=== PATIENT | female | born 1950 | race Caucasian/White ===

== ENCOUNTER 2016-07-15 11:43 | Emergency (ER) | payer OTHER ==
[2016-07-15 11:50] VITALS: TEMP 97.7
[2016-07-15] MEDS ORDERED: PROMETHAZINE HCL 25 MG/ML INJ IVP ONE (12:33)
[2016-07-15 12:37] LABS: % IMMATURE GRANULYOCYTES 0.3 % (0.0-1.1); ABSOLUTE IMMATURE GRANULOCYTES 0.03 10^3/uL (0.00-0.10); ADD DIFF? NO; ADD MORPH? NO; ADD SCAN? NO; ATYPICAL LYMPHOCYTE FLAG 0 (0-99); FRAGMENT RBC FLAG 0 (0-99); HEMATOCRIT 44.9 % (38.0-47.0); HEMOGLOBIN 16.7 g/dL (12.6-16.3); LEFT SHIFT FLG 0 (0-99); LIPEMIA HEMOLYSIS FLAG 90 (0-99); MEAN CELL HEMOGLOBIN 32.8 pg (27.9-34.1); MEAN CELL HEMOGLOBIN CONCENTR. 37.2 g/dL (32.4-36.7); MEAN CELL VOLUME 88.2 fL (81.5-99.8); MEAN PLATELET VOLUME 9.6 fL (8.7-11.7); PLATELET CLUMPS FLAG 10 (0-99); PLATELET COUNT 184 10^3/uL (150-400); RED BLOOD CELL COUNT 5.09 10^6/uL (4.18-5.33); RED CELL DISTRIBUTION WIDTH 12.9 % (11.5-15.2)
[2016-07-15 13:17] LABS: ALANINE AMINOTRANSFERASE 48 IU/L (9-52); ALBUMIN 4.7 g/dL (3.5-5.0); ALKALINE PHOSPHATASE 92 IU/L (38-126); ANION GAP 17 mEq/L (8-16); ASPARTATE AMINOTRANSFERASE 45 IU/L (14-46); BILIRUBIN,TOTAL 1.5 mg/dL (0.1-1.4); BILIRUBIN-CONJUGATED 0.6 mg/dL (0.0-0.5); BILIRUBIN-UNCONJUGATED 0.9 mg/dL (0.0-1.1); CALCIUM 9.4 mg/dL (8.5-10.4); CARBON DIOXIDE 18 mEq/l (22-31); CHLORIDE 104 mEq/L (97-110); CREATININE 0.4 mg/dL (0.6-1.0); GLOMERULAR FILTRATION RATE > 60; GLUCOSE 140 mg/dL (70-100); POTASSIUM 3.5 mEq/L (3.5-5.2); SODIUM 139 mEq/L (134-144); TOTAL PROTEIN 8.1 g/dL (6.3-8.2)
[2016-07-15] MEDS ORDERED: LORazepam 2 MG/ML INJ IVP ONE (13:29)
[2016-07-15] MEDS ORDERED: LORazepam 2 MG/ML INJ ONE (13:30)
--- NOTE | 2016-07-15 13:33 | EDPHY ---
H & P Stated Complaint: n/v Time Seen by Provider: 07/15/16 12:12 HPI/ROS: CHIEF COMPLAINT: nausea and vomiting HISTORY OF PRESENT ILLNESS: 66-year-old female presents emergency department complaining of nausea and vomiting that started yesterday morning. Patient reports the night before she had for alcoholic beverages which is more than she usually drinks, she woke up in the morning feeling hung over with mild nausea that progressed several hours later to vomiting. Patient denies abdominal pain. Patient states she has been unable to keep any food or fluids down since this time. Patient denies bright red blood in vomit, she denies diarrhea, no black tarry stools. She does report seeing brown streaks in her vomit but states she drink root beer trying to make herself feel better. Patient reports she smokes marijuana daily, 3-4 hits every night to sleep for the past year and half. Patient denies chest pain, shortness of breath, lightheadedness or dizziness. Patient has a history alcoholism, GI bleed, esophageal varices. Patient states she stopped drinking in 2010 and started drinking again 2 years ago though reports she only drinks about once a week in usually only 1 or 2 drinks. Her daughter is at bedside confirming this. REVIEW OF SYSTEMS: A comprehensive 10 point review of systems is otherwise negative aside from elements mentioned in the history of present illness. Source: Patient, Family Exam Limitations: No limitations - Personal History Current Tetanus/Diphtheria Vaccine: Yes - Medical/Surgical History Hx Asthma: No Hx Chronic Respiratory Disease: No Hx Diabetes: No Hx Cardiac Disease: No Hx Renal Disease: No Hx Cirrhosis: Yes Hx Alcoholism: Yes Hx HIV/AIDS: No Hx Splenectomy or Spleen Trauma: No Other PMH: Alcoholism, liver disease, anemia, gi bleed, esophageal varacies, falls related to alcohol, hip fracture, paracentesis procedure, osteoporosis - Social History Smoking Status: Never smoked Constitutional: Initial Vital Signs Temperature (C) 36.5 C 07/15/16 11:47 Heart Rate 117 H 07/15/16 11:47 Respiratory Rate 22 H 07/15/16 11:47 Blood Pressure 174/99 H 07/15/16 11:47 O2 Sat (%) 98 07/15/16 11:47 O2 Delivery Mode Room Air Allergies/Adverse Reactions: No Known Allergies Allergy (Verified 07/15/16 11:44) Home Medications: Medication Instructions Recorded Ondansetron Odt [Zofran Odt] 4 mg PO Q4PRN PRN #20 tab 09/11/14 LORazepam [Ativan (*)] 1 mg PO Q8HRS PRN #4 tab 07/15/16 Ondansetron Odt [Zofran Odt] 4 mg PO Q6-8PRN PRN #8 tab 07/15/16 Medical Decision Making ED Course/Re-evaluation: Patient is sent over from [facility] with an IV in place. She was given 2 L of normal saline and 8 mg of Zofran and continued to vomit. On arrival to the emergency department bloods were drawn and sent to the lab including a CBC, chemistry panel, LFTs and lipase. Patient is given 12.5 mg of Phenergan on arrival for continued nausea. Emesis seen in emesis basin, no coffee-ground emesis, no bright red blood. 1pm-CBC shows a normal white blood cell count, hemoglobin and hematocrit 16.7 and 44.9 and this was after 2 L of normal saline. LFTs are normal, kidney function is normal, bicarb is 18. 130pm-patient continues with nausea, emesis is basin. No coffee ground or bright red blood in emesis. She is given 1 mg lorazepam IV. 3pm- Pt reports feeling much better. She is aware we need a urine sample. She is ambulatory to the bathroom to provide this without difficulty. 330pm-urinalysis shows 5-10 RBCs, otherwise unremarkable. Patient was given a popsicle and kept this down without vomiting, she denies nausea. Patient will be discharged with a prescription for Zofran and a prescription for 4 lorazepam. She is given strict return precautions for hematemesis, coffee- ground emesis, hematochezia, abdominal pain, any new symptoms or concerns. Differential Diagnosis: Diagnosis considered but not limited to gastroenteritis, GI bleed, small-bowel obstruction, hyperemesis cannabinoid syndrome, hung over from alcohol. - Data Points Laboratory Results: Laboratory Results 07/15/16 12:30 07/15/16 12:30 07/15/16 07/15/16 14:55 12:30 WBC 9.79 H 10^3/uL (3.80-9.50) RBC 5.09 10^6/uL (4.18-5.33) Hgb 16.7 H g/dL (12.6-16.3) Hct 44.9 % (38.0-47.0) MCV 88.2 fL (81.5-99.8) MCH 32.8 pg (27.9-34.1) MCHC 37.2 H g/dL (32.4-36.7) RDW 12.9 % (11.5-15.2) Plt Count 184 10^3/uL (150-400) MPV 9.6 fL (8.7-11.7) Neut % (Auto) 79.8 H % (39.3-74.2) Lymph % (Auto) 11.0 L % (15.0-45.0) [place] % (Auto) 8.8 % (4.5-13.0) Eos % (Auto) 0.0 L % (0.6-7.6) Baso % (Auto) 0.1 L % (0.3-1.7) Nucleat RBC Rel Count 0.0 % (0.0-0.2) Absolute Neuts (auto) 7.81 H 10^3/uL (1.70-6.50) Absolute Lymphs (auto) 1.08 10^3/uL (1.00-3.00) Absolute Monos (auto) 0.86 H 10^3/uL (0.30-0.80) Absolute Eos (auto) 0.00 L 10^3/uL (0.03-0.40) Absolute Basos (auto) 0.01 L 10^3/uL (0.02-0.10) Absolute Nucleated RBC 0.00 10^3/uL (0-0.01) Immature Gran % 0.3 % (0.0-1.1) Immature Gran # 0.03 10^3/uL (0.00-0.10) Sodium 139 mEq/L (134-144) Potassium 3.5 mEq/L (3.5-5.2) Chloride 104 mEq/L (97-110) Carbon Dioxide 18 L mEq/l (22-31) Anion Gap 17 mEq/L (8-16) BUN 8 mg/dL (7-23) Creatinine 0.4 L mg/dL (0.6-1.0) Estimated GFR > 60 Glucose 140 H mg/dL (70-100) Calcium 9.4 mg/dL (8.5-10.4) Total Bilirubin 1.5 H mg/dL (0.1-1.4) Conjugated Bilirubin 0.6 H mg/dL (0.0-0.5) Unconjugated Bilirubin 0.9 mg/dL (0.0-1.1) AST 45 IU/L (14-46) ALT 48 IU/L (9-52) Alkaline Phosphatase 92 IU/L (38-126) Total Protein 8.1 g/dL (6.3-8.2) Albumin 4.7 g/dL (3.5-5.0) Lipase 43.0 IU/L (23-300) Urine Color YELLOW Urine Appearance CLEAR Urine pH 6.0 (5.0-7.5) Ur Specific [place] 1.011 (1.002-1.030) Urine Protein NEGATIVE (NEGATIVE) Urine Ketones 1+ H (NEGATIVE) Urine Blood 2+ H (NEGATIVE) Urine Nitrate NEGATIVE (NEGATIVE) Urine Bilirubin NEGATIVE (NEGATIVE) Urine Urobilinogen NEGATIVE EU (0.2-1.0) Ur Leukocyte Esterase NEGATIVE (NEGATIVE) Urine RBC 5-10 H /hpf (0-3) Urine WBC 1-3 /hpf (0-3) Ur Epithelial Cells TRACE /lpf (NONE-1+) Urine Mucus TRACE /lpf (NONE-1+) Ur Culture Indicated? NOT INDICATED (NI) Urine Glucose NEGATIVE (NEGATIVE) Medications Given: Discontinued Medications Lorazepam (Ativan Injection) 1 mg IVP EDNOW ONE Stop: 07/15/16 13:30 Last Admin: 07/15/16 13:36 Dose: 1 mg Promethazine HCl (Phenergan Injection) 12.5 mg IVP ONCE ONE Stop: 07/15/16 12:34 Last Admin: 07/15/16 12:50 Dose: 12.5 mg Departure - Departure Disposition: Home, Routine, Self-Care Clinical Impression: Nausea & vomiting Qualifiers: Vomiting type: unspecified Vomiting Intractability: non-intractable Qualifier Code: (R11.2) Nausea with vomiting, unspecified Condition: Good Instructions: Acute Nausea and Vomiting (ED) Additional Instructions: Take Zofran as needed for nausea, if this does not work take 1 mg of lorazepam every 8 hours as needed. Clear liquids only for the next 24 hours, start with small sips then advance her diet as tolerated. Return to the emergency department for worsening symptoms, blood in your vomit or stool, chest pain, shortness of breath, any other questions or concerns. Follow-up with your primary care doctor on Sunday for re-evaluation. Do not drink alcohol. Referrals: Isa Díaz MD [Primary Care Provider] - As per Instructions Prescriptions: LORazepam [Ativan (*)] 1 mg PO Q8HRS PRN #4 tab PRN Reason: Nausea/Vomiting, Can'T Take Po Ondansetron Odt [Zofran Odt] 4 mg PO Q6-8PRN PRN #8 tab PRN Reason: Nausea/Vomiting, Can'T Take Po
[2016-07-15 15:10] LABS: COLOR YELLOW; LEUKOCYTE ESTERASE,URINE NEGATIVE (NEGATIVE); NITRITE,URINE NEGATIVE (NEGATIVE)
[2016-07-15 15:15] LABS: MUCUS TRACE /lpf (NONE-1+)
[2016-07-15 15:58] VITALS: BP 165/89; PULSE 101; RESP 16; O2SAT 95
== END 2016-07-15 15:58 | disposition home or self-care (01) ==
DX: R11.2 Nausea with vomiting, unspecified (principal)
CPT/HCPCS: 96374; 96375; 99284; J2550

== ENCOUNTER 2016-07-16 14:01 | Emergency (ER) | payer OTHER ==
[2016-07-16 14:29] VITALS: TEMP 98.4
[2016-07-16] MEDS ORDERED: NS 1,000 ML IV ONE (14:49)
[2016-07-16 14:57] LABS: % IMMATURE GRANULYOCYTES 0.3 % (0.0-1.1); ABSOLUTE IMMATURE GRANULOCYTES 0.03 10^3/uL (0.00-0.10); ADD DIFF? NO; ADD MORPH? NO; ADD SCAN? NO; ATYPICAL LYMPHOCYTE FLAG 0 (0-99); FRAGMENT RBC FLAG 0 (0-99); HEMATOCRIT 47.2 % (38.0-47.0); HEMOGLOBIN 17.4 g/dL (12.6-16.3); LEFT SHIFT FLG 0 (0-99); LIPEMIA HEMOLYSIS FLAG 90 (0-99); MEAN CELL HEMOGLOBIN 32.2 pg (27.9-34.1); MEAN CELL HEMOGLOBIN CONCENTR. 36.9 g/dL (32.4-36.7); MEAN CELL VOLUME 87.2 fL (81.5-99.8); MEAN PLATELET VOLUME 9.6 fL (8.7-11.7); PLATELET CLUMPS FLAG 0 (0-99); PLATELET COUNT 166 10^3/uL (150-400); RED BLOOD CELL COUNT 5.41 10^6/uL (4.18-5.33); RED CELL DISTRIBUTION WIDTH 12.8 % (11.5-15.2)
[2016-07-16 15:14] LABS: ANION GAP 16 mEq/L (8-16); CALCIUM 9.5 mg/dL (8.5-10.4); CARBON DIOXIDE 20 mEq/l (22-31); CHLORIDE 99 mEq/L (97-110); CREATININE 0.5 mg/dL (0.6-1.0); GLOMERULAR FILTRATION RATE > 60; GLUCOSE 115 mg/dL (70-100); POTASSIUM 3.1 mEq/L (3.5-5.2); SODIUM 135 mEq/L (134-144)
[2016-07-16] MEDS ORDERED: ONDANSETRON 4 MG/2 ML VIAL IVP ONE (15:19)
--- NOTE | 2016-07-16 15:21 | EDPHY ---
H & P Stated Complaint: n/v seen yesterday for same Time Seen by Provider: 07/16/16 14:45 HPI/ROS: CHIEF COMPLAINT: Intractable nausea and vomiting HISTORY OF PRESENT ILLNESS: The patient presents to the emergency department with complaints of ongoing intractable nausea and vomiting. The patient was seen in the emergency department yesterday for similar symptoms. The patient reports she has had symptoms of nausea and vomiting for the past 4 days. They initially began after using alcohol. The patient does have a history of alcoholic hepatitis. The patient denies any melena. She currently denies any acute abdominal pain. She vomited approximately 5-10 times throughout the evening. There was no hematemesis or melena. REVIEW OF SYSTEMS: A comprehensive 10 point review of systems is otherwise negative aside from elements mentioned in the history of present illness. Source: Patient Exam Limitations: No limitations - Personal History Current Tetanus/Diphtheria Vaccine: Yes - Medical/Surgical History Hx Asthma: No Hx Chronic Respiratory Disease: No Hx Diabetes: No Hx Cardiac Disease: No Hx Renal Disease: No Hx Cirrhosis: Yes Hx Alcoholism: Yes Hx HIV/AIDS: No Hx Splenectomy or Spleen Trauma: No Other PMH: Alcoholism, liver disease, anemia, gi bleed, esophageal varacies, falls related to alcohol, hip fracture, paracentesis procedure, osteoporosis - Social History Smoking Status: Never smoked - Physical Exam Exam: General Appearance: Alert, no distress Eyes: Pupils equal and round no pallor or injection ENT, Mouth: Mucous membranes moist Respiratory: There are no retractions, lungs are clear to auscultation Cardiovascular: Regular rate and rhythm Gastrointestinal: Abdomen is soft and nontender, no masses, bowel sounds normal Neurological: A&O, normal motor function, normal sensory exam, normal cranial nerves Skin: Warm and dry, no rashes Musculoskeletal: Neck is supple nontender Extremities: symmetrical, full range of motion Constitutional: Initial Vital Signs Temperature (C) 36.9 C 07/16/16 14:27 Heart Rate 108 H 07/16/16 14:27 Respiratory Rate 23 H 07/16/16 14:27 Blood Pressure 165/123 H 07/16/16 14:27 O2 Sat (%) 97 07/16/16 14:27 O2 Delivery Mode Room Air Allergies/Adverse Reactions: No Known Allergies Allergy (Verified 07/16/16 14:26) Home Medications: Medication Instructions Recorded Ativan 07/16/16 Ondansetron Odt [Zofran Odt] 4 mg PO Q4PRN PRN #20 tab 07/16/16 Zofran 07/16/16 Medical Decision Making ED Course/Re-evaluation: The patient presents to the ED with recurrent vomiting. I find her abdominal examination to be benign. She had an IV established. She received 2 L of normal saline. I reviewed her ED visit from yesterday including her laboratory studies. Laboratory studies are repeated today and found to be unremarkable. The patient did receive IV Zofran. She was re-examined by myself 3 times over a 3 hour period. At this point time she has no evidence of cholecystitis, appendicitis, pancreatitis or peritonitis. Patient was evaluated at 5:45 p.m. and is feeling much better. She would like to be discharged home. She is given a another prescription for Zofran. The patient will be discharged home with customary return precautions. Differential Diagnosis: Differential diagnosis considered includes cholecystitis, pancreatitis, gastroenteritis, metabolic abnormality, dehydration - Data Points Laboratory Results: Laboratory Results 07/16/16 14:50 07/16/16 14:50 07/16/16 14:50 WBC 10.01 H 10^3/uL (3.80-9.50) RBC 5.41 H 10^6/uL (4.18-5.33) Hgb 17.4 H g/dL (12.6-16.3) Hct 47.2 H % (38.0-47.0) MCV 87.2 fL (81.5-99.8) MCH 32.2 pg (27.9-34.1) MCHC 36.9 H g/dL (32.4-36.7) RDW 12.8 % (11.5-15.2) Plt Count 166 10^3/uL (150-400) MPV 9.6 fL (8.7-11.7) Neut % (Auto) 72.5 % (39.3-74.2) Lymph % (Auto) 19.0 % (15.0-45.0) [place] % (Auto) 7.8 % (4.5-13.0) Eos % (Auto) 0.0 L % (0.6-7.6) Baso % (Auto) 0.4 % (0.3-1.7) Nucleat RBC Rel Count 0.0 % (0.0-0.2) Absolute Neuts (auto) 7.26 H 10^3/uL (1.70-6.50) Absolute Lymphs (auto) 1.90 10^3/uL (1.00-3.00) Absolute Monos (auto) 0.78 10^3/uL (0.30-0.80) Absolute Eos (auto) 0.00 L 10^3/uL (0.03-0.40) Absolute Basos (auto) 0.04 10^3/uL (0.02-0.10) Absolute Nucleated RBC 0.00 10^3/uL (0-0.01) Immature Gran % 0.3 % (0.0-1.1) Immature Gran # 0.03 10^3/uL (0.00-0.10) Sodium 135 mEq/L (134-144) Potassium 3.1 L mEq/L (3.5-5.2) Chloride 99 mEq/L (97-110) Carbon Dioxide 20 L mEq/l (22-31) Anion Gap 16 mEq/L (8-16) BUN 9 mg/dL (7-23) Creatinine 0.5 L mg/dL (0.6-1.0) Estimated GFR > 60 Glucose 115 H mg/dL (70-100) Calcium 9.5 mg/dL (8.5-10.4) Total Bilirubin 1.7 H mg/dL (0.1-1.4) Conjugated Bilirubin 0.7 H mg/dL (0.0-0.5) Unconjugated Bilirubin 1.0 mg/dL (0.0-1.1) AST 46 IU/L (14-46) ALT 46 IU/L (9-52) Alkaline Phosphatase 92 IU/L (38-126) Total Protein 8.5 H g/dL (6.3-8.2) Albumin 4.7 g/dL (3.5-5.0) Lipase 93.0 IU/L (23-300) Medications Given: Discontinued Medications Sodium Chloride (Ns) 1,000 mls @ 0 mls/hr IV ONCE ONE PRN Reason: Wide Open Stop: 07/16/16 14:50 Last Admin: 07/16/16 15:02 Dose: 1,000 mls Ondansetron HCl (Zofran) 4 mg IVP EDNOW ONE Stop: 07/16/16 15:20 Last Admin: 07/16/16 15:35 Dose: 4 mg Departure - Departure Disposition: Home, Routine, Self-Care Clinical Impression: Gastroenteritis Condition: Good Instructions: Acute Nausea and Vomiting (ED) Additional Instructions: 1. Return to the ED for any severe abdominal pain, intractable vomiting, fever or other concerns. 2. Continue Zofran as needed for nausea. 3. Please follow-up with your primary care provider as needed Prescriptions: Ondansetron Odt [Zofran Odt] 4 mg PO Q4PRN PRN #20 tab PRN Reason: For Nausea
[2016-07-16 15:35] LABS: ALBUMIN 4.7 g/dL (3.5-5.0); BILIRUBIN,TOTAL 1.7 mg/dL (0.1-1.4); BILIRUBIN-CONJUGATED 0.7 mg/dL (0.0-0.5); TOTAL PROTEIN 8.5 g/dL (6.3-8.2)
[2016-07-16 18:00] VITALS: RESP 18
[2016-07-16 18:01] VITALS: BP 158/93; PULSE 91; O2SAT 97
== END 2016-07-16 18:00 | disposition home or self-care (01) ==
DX: K52.9 Noninfective gastroenteritis and colitis, unspecified (principal)
CPT/HCPCS: 96361; 96374; 99284; J2405

== ENCOUNTER 2016-08-10 04:55 | Observation (INO) | payer OTHER ==
[2016-08-10] MEDS ORDERED: ONDANSETRON 4 MG/2 ML VIAL ONE (05:08)
[2016-08-10] MEDS ORDERED: ONDANSETRON 4 MG/2 ML VIAL IVP ONE (05:09)
[2016-08-10] MEDS ORDERED: NS 1,000 ML IV ONE ×2 (05:09→06:31)
[2016-08-10 05:31] LABS: % IMMATURE GRANULYOCYTES 0.3 % (0.0-1.1); ABSOLUTE IMMATURE GRANULOCYTES 0.03 10^3/uL (0.00-0.10); ADD DIFF? NO; ADD MORPH? NO; ADD SCAN? NO; ATYPICAL LYMPHOCYTE FLAG 10 (0-99); FRAGMENT RBC FLAG 0 (0-99); HEMATOCRIT 47.7 % (38.0-47.0); HEMOGLOBIN 17.2 g/dL (12.6-16.3); LEFT SHIFT FLG 0 (0-99); LIPEMIA HEMOLYSIS FLAG 90 (0-99); MEAN CELL HEMOGLOBIN 32.1 pg (27.9-34.1); MEAN CELL HEMOGLOBIN CONCENTR. 36.1 g/dL (32.4-36.7); MEAN CELL VOLUME 89.2 fL (81.5-99.8); MEAN PLATELET VOLUME 10.8 fL (8.7-11.7); PLATELET CLUMPS FLAG 10 (0-99); PLATELET COUNT 157 10^3/uL (150-400); RED BLOOD CELL COUNT 5.35 10^6/uL (4.18-5.33)
[2016-08-10] MEDS ORDERED: PROMETHAZINE HCL 25 MG/ML INJ IVP ONE (05:35)
--- NOTE | 2016-08-10 05:40 | EDPHY ---
H & P Stated Complaint: N and V and D severe since 0030; brown watery stool per pt Source: Patient Exam Limitations: No limitations - Personal History Current Tetanus/Diphtheria Vaccine: Yes Current Tetanus Diphtheria and Acellular Pertussis (TDAP): Yes - Medical/Surgical History Hx Asthma: No Hx Chronic Respiratory Disease: No Hx Diabetes: No Hx Cardiac Disease: No Hx Renal Disease: No Hx Cirrhosis: Yes Hx Alcoholism: Yes Hx HIV/AIDS: No Hx Splenectomy or Spleen Trauma: No Other PMH: Alcoholism, liver disease, anemia, gi bleed, esophageal varacies, falls related to alcohol, hip fracture, paracentesis procedure, osteoporosis - Social History Smoking Status: Never smoked Time Seen by Provider: 08/10/16 05:07 HPI/ROS: HPI The patient presents with nausea, vomiting, diarrhea which began suddenly at approximately 12:30 a.m. this morning. She has had multiple episodes of loose watery stool without any blood. The vomiting began shortly thereafter and she has nonbloody nonbilious emesis. She denies any abdominal pain. This feels similar to about 1 month ago when she came into the emergency room with nausea, vomiting, diarrhea. She was sick for about 3 days then and made a full recovery. She denies any sick contacts currently. She had 1 beer yesterday, however otherwise has not been drinking alcohol.. REVIEW OF SYSTEMS Constitutional: No fever, no chills. Eyes: No discharge. ENT: No sore throat. Cardiovascular: No chest pain, no palpitations. Respiratory: No cough, no shortness of breath. Gastrointestinal: See HPI Genitourinary: No hematuria. Musculoskeletal: No back pain. Skin: No rashes. Neurological: No headache. PMHx: Alcoholic hepatitis Soc Hx: Lives at home PHYSICAL General Appearance: Alert, hyperventilating and uncomfortable appearing Eyes: Pupils equal and round no pallor or injection ENT, Mouth: Mucous membranes dry Respiratory: There are no retractions, lungs are clear to auscultation Cardiovascular: Regular rate and rhythm Gastrointestinal: Abdomen is soft and non-tender, no masses, bowel sounds normal Neurological: A&O, moves all extremities Skin: Warm and dry, no rashes Musculoskeletal: Neck is supple non tender Extremities: symmetrical, full range of motion Psychiatric: Patient is oriented X 3, there is no agitation (Riguzzi,Rita) Constitutional: Initial Vital Signs Temperature (C) 36.0 C 08/10/16 05:08 Heart Rate 106 H 08/10/16 05:08 Respiratory Rate 24 H 08/10/16 05:08 Blood Pressure 192/98 H 08/10/16 05:08 O2 Sat (%) 100 08/10/16 05:08 O2 Delivery Mode Room Air O2 (L/minute) 2 Allergies/Adverse Reactions: No Known Allergies Allergy (Verified 07/16/16 14:26) Home Medications: Medication Instructions Recorded Promethazine HCl [Phenergan 25mg 25 mg PO Q6H PRN #20 tab 08/10/16 (*)] Medical Decision Making ED Course/Re-evaluation: 6:30 a.m.- Patient has had no vomiting here but continues to feel nauseated after receiving fluids, Zofran and Phenergan. She is still hyperventilating and appears quite anxious. Her labs are unremarkable except for slight elevation in her AST which is likely related to alcohol use. I plan for additional L of fluid and a dose of Ativan for nausea. 7:00 a.m.- The patient is feeling much better after receiving Ativan. Her nausea has improved. She will receive a 2nd L of fluid. I anticipate she will be discharged. I feel she likely has a viral gastroenteritis. (Rita Cox) 900: I rechecked the patient. She was still feeling nauseated. She felt too ill for discharge home. She will be admitted to the [facility] for further observation and evaluation. I discussed the case with the hospitalist service who accepted patient. (Cara Goldstein) Differential Diagnosis: This is a 66-year-old female with history of alcoholic hepatitis, recent ER visit for nausea, vomiting diarrhea, now here with similar symptoms. On exam, she is slightly tachycardic and hypertensive. She is hyperventilating and appears uncomfortable, however her abdominal exam is benign. Differential diagnosis includes viral gastroenteritis, toxin mediated enterocolitis, alcoholic gastritis, pancreatitis. (Rita Cox) - Data Points Laboratory Results: Laboratory Results 08/10/16 05:15 08/10/16 05:15 08/10/16 08/10/16 08/10/16 06:35 05:15 05:15 WBC 8.92 10^3/uL 10^3/uL (3.80-9.50) RBC 5.35 10^6/uL H 10^6/uL (4.18-5.33) Hgb 17.2 g/dL H g/dL (12.6-16.3) Hct 47.7 % H % (38.0-47.0) MCV 89.2 fL fL (81.5-99.8) MCH 32.1 pg pg (27.9-34.1) MCHC 36.1 g/dL g/dL (32.4-36.7) RDW 13.0 % % (11.5-15.2) Plt Count 157 10^3/uL 10^3/uL (150-400) MPV 10.8 fL fL (8.7-11.7) Neut % (Auto) 88.5 % H % (39.3-74.2) Lymph % (Auto) 6.6 % L % (15.0-45.0) [place] % (Auto) 4.0 % L % (4.5-13.0) Eos % (Auto) 0.2 % L % (0.6-7.6) Baso % (Auto) 0.4 % % (0.3-1.7) Nucleat RBC Rel Count 0.0 % % (0.0-0.2) Absolute Neuts (auto) 7.88 10^3/uL H 10^3/uL (1.70-6.50) Absolute Lymphs (auto) 0.59 10^3/uL L 10^3/uL (1.00-3.00) Absolute Monos (auto) 0.36 10^3/uL 10^3/uL (0.30-0.80) Absolute Eos (auto) 0.02 10^3/uL L 10^3/uL (0.03-0.40) Absolute Basos (auto) 0.04 10^3/uL 10^3/uL (0.02-0.10) Absolute Nucleated RBC 0.00 10^3/uL 10^3/uL (0-0.01) Immature Gran % 0.3 % % (0.0-1.1) Immature Gran # 0.03 10^3/uL 10^3/uL (0.00-0.10) Sodium 143 mEq/L mEq/L (134-144) Potassium 3.2 mEq/L L mEq/L (3.5-5.2) Chloride 107 mEq/L mEq/L (97-110) Carbon Dioxide 18 mEq/l L mEq/l (22-31) Anion Gap 18 mEq/L H mEq/L (8-16) BUN 10 mg/dL mg/dL (7-23) Creatinine 0.5 mg/dL L mg/dL (0.6-1.0) Estimated GFR > 60 Glucose 175 mg/dL H mg/dL (70-100) Calcium 10.1 mg/dL mg/dL (8.5-10.4) Total Bilirubin 1.5 mg/dL H mg/dL (0.1-1.4) Conjugated Bilirubin 0.5 mg/dL mg/dL (0.0-0.5) Unconjugated Bilirubin 1.0 mg/dL mg/dL (0.0-1.1) AST 57 IU/L H IU/L (14-46) ALT 49 IU/L IU/L (9-52) Alkaline Phosphatase 94 IU/L IU/L (38-126) Total Protein 8.6 g/dL H g/dL (6.3-8.2) Albumin 5.0 g/dL g/dL (3.5-5.0) Lipase 73.0 IU/L IU/L (23-300) Urine Color PALE YELLOW Urine Appearance CLEAR Urine pH 7.0 (5.0-7.5) Ur Specific [place] 1.006 (1.002-1.030) Urine Protein NEGATIVE (NEGATIVE) Urine Ketones 1+ H (NEGATIVE) Urine Blood 1+ H (NEGATIVE) Urine Nitrate NEGATIVE (NEGATIVE) Urine Bilirubin NEGATIVE (NEGATIVE) Urine Urobilinogen NEGATIVE EU EU (0.2-1.0) Ur Leukocyte Esterase NEGATIVE (NEGATIVE) Urine RBC 1-3 /hpf /hpf (0-3) Urine WBC 1-3 /hpf /hpf (0-3) Ur Epithelial Cells TRACE /lpf /lpf (NONE-1+) Urine Mucus TRACE /lpf /lpf (NONE-1+) Ur Culture Indicated? NOT INDICATED (NI) Urine Glucose 1+ H (NEGATIVE) Medications Given: Discontinued Medications Sodium Chloride (Ns) 1,000 mls @ 0 mls/hr IV ONCE ONE PRN Reason: Wide Open Stop: 08/10/16 05:10 Last Admin: 08/10/16 05:15 Dose: 1,000 mls Sodium Chloride (Ns) 1,000 mls @ 0 mls/hr IV ONCE ONE PRN Reason: Wide Open Stop: 08/10/16 06:32 Last Admin: 08/10/16 06:40 Dose: 1,000 mls Lorazepam (Ativan Injection) 1 mg IVP EDNOW ONE Stop: 08/10/16 06:32 Last Admin: 08/10/16 06:40 Dose: 1 mg Ondansetron HCl (Zofran) 4 mg IVP EDNOW ONE Stop: 08/10/16 05:10 Last Admin: 08/10/16 05:15 Dose: 4 mg Promethazine HCl (Phenergan) 12.5 mg IVP ONCE ONE Stop: 08/10/16 05:36 Last Admin: 08/10/16 05:43 Dose: 6.25 mg Departure - Departure Disposition: [facility] Acute Clinical Impression: Nausea vomiting and diarrhea Condition: Good Instructions: Acute Nausea and Vomiting (ED) Additional Instructions: Please follow-up with your doctor tomorrow unless your better. Referrals: VERONICA CERDA [Other] - As per Instructions Prescriptions: Promethazine HCl [Phenergan 25mg (*)] 25 mg PO Q6H PRN #20 tab PRN Reason: Nausea/Vomiting, Can'T Take Po
[2016-08-10 05:44] LABS: ALANINE AMINOTRANSFERASE 49 IU/L (9-52); ALKALINE PHOSPHATASE 94 IU/L (38-126); ANION GAP 18 mEq/L (8-16); ASPARTATE AMINOTRANSFERASE 57 IU/L (14-46); BILIRUBIN,TOTAL 1.5 mg/dL (0.1-1.4); BILIRUBIN-CONJUGATED 0.5 mg/dL (0.0-0.5); CALCIUM 10.1 mg/dL (8.5-10.4); CARBON DIOXIDE 18 mEq/l (22-31); CHLORIDE 107 mEq/L (97-110); CREATININE 0.5 mg/dL (0.6-1.0); GLOMERULAR FILTRATION RATE > 60; GLUCOSE 175 mg/dL (70-100); POTASSIUM 3.2 mEq/L (3.5-5.2); SODIUM 143 mEq/L (134-144); TOTAL PROTEIN 8.6 g/dL (6.3-8.2)
[2016-08-10] MEDS ORDERED: LORazepam 2 MG/ML INJ IVP ONE (06:31)
[2016-08-10 07:05] LABS: COLOR PALE YELLOW; LEUKOCYTE ESTERASE,URINE NEGATIVE (NEGATIVE); NITRITE,URINE NEGATIVE (NEGATIVE)
[2016-08-10 07:15] LABS: MUCUS TRACE /lpf (NONE-1+)
[2016-08-10] MEDS ORDERED: ACETAMINOPHEN 325 MG TAB PO PRN (10:33)
--- NOTE | 2016-08-10 11:00 | GHP ---
DATE OF ADMISSION: 08/10/2016 CHIEF COMPLAINT: Nausea, vomiting and diarrhea. HISTORY OF PRESENT ILLNESS: This is a 66-year-old female with a former history of alcohol abuse, li last disease, varices who presented to the emergency department today after she began having nausea, vomiting and diarrhea that started at 12:30 this morning. She denies any bloody emesis. She has be en intolerant of p.o. fluids or solids. In the emergency department they have given her Zofran, Phe nergan, and Ativan and she continues to vomit. The patient had a similar bout of nausea and vomiting at the beginning of July, which at that ti me she attributed to alcohol use. She tells me that she only had 1 beer yesterday. She currently d enies any abdominal pain. Her diarrhea started yesterday and it is described as nonbloody. PAST MEDICAL HISTORY: 1. Alcoholism which she says now she drinks only occasionally. 2. Liver disease. 3. GI bleed. 4. Esophageal varices. 5. Falls with hip fracture. 6. Osteoporosis. PAST SURGICAL HISTORY: Hip replacement. HOME MEDICATIONS: Were reviewed. Refer to [facility] [employer] for details. ALLERGIES: No known drug allergies. SOCIAL HISTORY: The patient lives in [place]. She drinks alcohol occasionally. She denies any tob acco use or illicit drug use. She is a former smoker. REVIEW OF SYSTEMS: Comprehensive 10-point review of systems was done and was negative except for as mentioned in the HPI. PHYSICAL EXAM: VITAL SIGNS: Blood pressure 179/66, pulse of 110, respiratory rate 14, O2 saturatio n 98% on room air, temperature afebrile. GENERAL: No acute distress. HEAD: Normocephalic, atraum atic. EYES: PERRLA. Sclerae anicteric. MOUTH: Moist mucous membranes. NECK: Supple. No lymph adenopathy. CARDIOVASCULAR: Tachycardic. S1, S2. No JVD. No lower extremity edema. PULMONARY: Lungs are clear. No wheezes, rales, or rhonchi. ABDOMEN: Soft, nontender, nondistended. No guar ding or rebound tenderness. Normoactive bowel sounds, nondistended. There is negative M[place]y sign. EXTREMITIES: No clubbing or cyanosis. NEURO: Cranial nerves 2-12 grossly intact. No focal isamar r or sensory deficits. SKIN: Clear, no rashes. DIAGNOSTIC STUDIES: WBC 8.9, hemoglobin 17.2, hematocrit 47.7, platelets 157. Sodium 143, potassiu m 3.2, chloride 107, CO2 18, BUN 10, creatinine 0.5, glucose 175. AST mildly elevated at 57. Urina lysis: 1+ ketones, 1+ blood. ASSESSMENT AND PLAN: This is a 66-year-old female presenting with nausea, vomiting and diarrhea. 1. Nausea vomiting, diarrhea. Differential diagnosis includes acute viral illness/gastroenteritis versus food-borne illness versus less likely dyspepsia/alcoholic gastritis. Plan: The patient will be placed on observation. We will continue IV hydration and antiemetics. 2. Mild hypokalemia related to acute gastroenteritis. Plan: Replace per protocol. 3. Polycythemia, most likely due to dehydration. Plan is to continue hydration and monitor hemoglo bin and hematocrit. /[id number]
[2016-08-10] MEDS: D5W 1/2 NS W/ 20 KCl/L 1,000 ML IV SCH (11:44)
[2016-08-10] MEDS: ONDANSETRON DISINTEGRATING 4 MG TAB PO PRN (11:44)
[2016-08-10] MEDS: PROMETHAZINE HCL 25 MG/ML INJ IVP PRN (12:12)
[2016-08-10 13:15] LABS: % IMMATURE GRANULYOCYTES 0.3 % (0.0-1.1); ABSOLUTE IMMATURE GRANULOCYTES 0.02 10^3/uL (0.00-0.10); ADD DIFF? NO; ADD MORPH? NO; ADD SCAN? NO; ATYPICAL LYMPHOCYTE FLAG 0 (0-99); FRAGMENT RBC FLAG 0 (0-99); HEMATOCRIT 44.7 % (38.0-47.0); HEMOGLOBIN 15.9 g/dL (12.6-16.3); LEFT SHIFT FLG 0 (0-99); LIPEMIA HEMOLYSIS FLAG 90 (0-99); MEAN CELL HEMOGLOBIN 31.9 pg (27.9-34.1); MEAN CELL HEMOGLOBIN CONCENTR. 35.6 g/dL (32.4-36.7); MEAN CELL VOLUME 89.6 fL (81.5-99.8); MEAN PLATELET VOLUME 10.6 fL (8.7-11.7); PLATELET CLUMPS FLAG 0 (0-99); PLATELET COUNT 128 10^3/uL (150-400); RED BLOOD CELL COUNT 4.99 10^6/uL (4.18-5.33); RED CELL DISTRIBUTION WIDTH 13.1 % (11.5-15.2)
[2016-08-10] MEDS: CALCIUM CARBONATE 500 MG CHEWABLE TAB PO PRN ×2 (14:17→20:07)
[2016-08-10] MEDS: LORazepam 2 MG/ML INJ IVP PRN (14:29)
[2016-08-10] MEDS ORDERED: NS 500 ML IV ONE (16:30)
[2016-08-10 20:00] VITALS: RESP 17
[2016-08-10] MEDS: traZODone 50 MG TAB PO SCH (22:11)
[2016-08-11] MEDS: traZODone 50 MG TAB PO SCH (01:27)
[2016-08-11] MEDS: D5W 1/2 NS W/ 20 KCl/L 1,000 ML IV SCH (01:27)
[2016-08-11] MEDS: PROMETHAZINE HCL 25 MG/ML INJ IVP PRN ×2 (02:20→11:20)
[2016-08-11] MEDS: LORazepam 2 MG/ML INJ IVP PRN ×2 (02:26→07:34)
[2016-08-11] MEDS: CALCIUM CARBONATE 500 MG CHEWABLE TAB PO PRN (04:34)
[2016-08-11 05:01] LABS: ANION GAP 10 mEq/L (8-16); CALCIUM 8.7 mg/dL (8.5-10.4); CARBON DIOXIDE 21 mEq/l (22-31); CHLORIDE 105 mEq/L (97-110); CREATININE 0.4 mg/dL (0.6-1.0); GLOMERULAR FILTRATION RATE > 60; GLUCOSE 125 mg/dL (70-100); SODIUM 136 mEq/L (134-144)
[2016-08-11] MEDS: ONDANSETRON DISINTEGRATING 4 MG TAB PO PRN (07:35)
[2016-08-11] MEDS ORDERED: PROTOCOL POTASSIUM 1 DOSE MISC PRN (08:15)
[2016-08-11] MEDS ORDERED: POTASSIUM CL 10 MEQ TAB PO ONE (08:37)
[2016-08-11] MEDS ORDERED: PANTOPRAZOLE SODIUM 40 MG TAB PO SCH (10:00)
[2016-08-11 13:48] VITALS: O2SAT 95
[2016-08-11 16:27] VITALS: BP 120/83; PULSE 86; TEMP 97.2
--- NOTE | 2016-08-11 21:09 | GDS ---
DISCHARGE DIAGNOSES: 1. Intractable nausea and vomiting, and diarrhea, most likely due to acute viral gastroenteritis. 2. History of alcoholism with reported sobriety. 3. Hypokalemia. 4. Dehydration. 5. High blood pressure. HOSPITAL COURSE AND STAY BY PROBLEM: 1. Intractable nausea and vomiting: The patient was placed on observation, where she was treated w ith IV fluids and antiemetics. On the morning of hospital day #1, the patient was still quite wheez y but was tolerating some clears. She denied any abdominal pain. The patient was still not feeling 100%. At this time, the plan was to continue to monitor her in the observation unit in hopes that s he will be feeling better by this afternoon, at which time she can be discharged home. 2. The patient denies a history of hypertension; however, her blood pressure has been high througho ut her stay. On the afternoon of the 3rd, her systolic was 193 and diastolic was 96. I did have so me concerns that the patient's symptoms could be from withdrawal. However, the patient denies any a lcohol or illicit drug use. I suppose her elevated blood pressure is likely reactionary due to her acute illness. PHYSICAL EXAMINATION: VITAL SIGNS: On day of discharge, blood pressure 193/96, heart rate 92, resp iratory rate 17, O2 saturation 95% on room air. ABDOMEN: Soft, nontender, nondistended. No guardi ng or rebound tenderness. Normoactive bowel sounds. NEUROLOGIC: She is tremulous. Alert and orien tyesha to person, place, time. DISCHARGE MEDICATIONS: Please refer to discharge medication reconciliation in [facility] for details. Below is a preliminary list: New medications on hospital discharge: Protonix 40 mg daily. Phenergan 25 mg p.o. q.6 hours p.r.n. nausea and vomiting, Zofran ODT 4 mg p.o. q.4-6 hours p.r.n. nausea and vomiting to be use first-li ne prior using Phenergan. DISCHARGE INSTRUCTIONS: The patient will be discharged home later today as long as she is toleratin g a diet. If she is unable to the eat, she may require transfer day inpatient stay. /[id number]/MODL
== END 2016-08-11 16:28 | disposition home or self-care (01) ==
LOC: F1N 10:58
PROVIDERS: ADMIT Family Medicine; ATTEND Family Medicine
DX: A08.4 Viral intestinal infection, unspecified (principal); F10.21 Alcohol dependence, in remission; E87.6 Hypokalemia; E86.0 Dehydration; R03.0 Elevated blood-pressure reading, without diagnosis of hypertension; M81.0 Age-related osteoporosis without current pathological fracture
CPT/HCPCS: 96361; 96374; 96375; 99285; G0378; J2405; J2550

== ENCOUNTER 2016-10-25 04:11 | Observation (INO) | payer OTHER ==
[2016-10-25] MEDS ORDERED: LORazepam 2 MG/ML INJ IVP ONE ×2 (04:22→08:03)
[2016-10-25] MEDS ORDERED: NS 1,000 ML IV ONE ×3 (04:22→06:06)
[2016-10-25] MEDS ORDERED: ONDANSETRON 4 MG/2 ML VIAL IVP ONE ×2 (04:22→11:45)
--- NOTE | 2016-10-25 04:25 | EDPHY ---
H & P - Medical/Surgical History Hx Asthma: No Hx Chronic Respiratory Disease: No Hx Diabetes: No Hx Cardiac Disease: No Hx Renal Disease: No Hx Cirrhosis: Yes Hx Alcoholism: Yes Hx HIV/AIDS: No Hx Splenectomy or Spleen Trauma: No Other PMH: Alcoholism, liver disease, anemia, gi bleed, esophageal varacies, falls related to alcohol, hip fracture, paracentesis procedure, osteoporosis - Social History Smoking Status: Former smoker Time Seen by Provider: 10/25/16 04:23 HPI/ROS: Chief Complaint: Vomiting HPI: 66-year-old woman with a past medical history of cirrhosis and alcoholic liver disease has been vomiting for over 24 hours unable to keep any fluids down. Patient states she thinks she may have drunk too much alcohol. States on Sunday she drink the screwdrivers and 3 beers. That evening started vomiting has been continuing to do so. Is not having any abdominal pain. No fevers or chills. Has had normal bowel movements yesterday. No blood or melena. No chest pain or shortness of breath. Patient states she does feel anxious as well. Daughter gave her some Zofran without any relief yesterday evening. ROS: 10 point Review of Systems is negative except as noted in the HPI. PMH: Alcoholic liver disease Social History: No smoking, occasional alcohol, occasional marijuana Family History: non-contributory Physical Exam: Gen: Awake, Alert, anxious appearing HEENT: Nose: no rhinorrhea Eyes: PERRLA, EOMI Mouth: Dry mucosa Neck: Supple, no JVD Chest: nontender, lungs clear to auscultation Heart: S1, S2 normal, no murmur Abd: Soft, non-tender, no guarding Back: no CVA tenderness, no midline tenderness Ext: no edema, non-tender Skin: no rash Neuro: CN II-XII intact, Sensation grossly intact, Strength 5/5 in bilateral upper and lower extremities (Sebastien Ramirez) Constitutional: Initial Vital Signs Temperature (C) 36.9 C 10/25/16 04:24 Heart Rate 145 H 10/25/16 04:24 Respiratory Rate 20 10/25/16 04:24 Blood Pressure 141/94 H 10/25/16 04:24 O2 Sat (%) 97 10/25/16 04:24 O2 Delivery Mode Room Air Allergies/Adverse Reactions: No Known Allergies Allergy (Verified 07/16/16 14:26) Home Medications: Medication Instructions Recorded NK [No Known Home Meds] 10/25/16 Medical Decision Making ED Course/Re-evaluation: 06 Patient's electrolytes noted. She is mildly hyperglycemic with an acidosis. She is very clinically dehydrated however. Will continue to IV hydrate her. Her heart rate is coming down. She is resting comfortably. Plan will be to recheck her chemistry after hydration and p. o. challenge. I believe she is not a likely volume contracture acidosis. [id number] Care signed out to Dr Alva pending hydration and re-evaluation of chemistry. (Sebastien Ramirez) This patient was signed out to me at shift change. Unfortunately, despite aggressive rehydration and attempts at oral intake this patient is still nauseated and vomiting and she still has a heart rate in the 120s. Some of this might still be withdrawal despite the fact that we have been treating her aggressively with benzodiazepines also. Due to her abnormal chemistries, liver failure, dehydration, and inability to take oral fluids well I will admit her for CC while evaluation and dehydration until she can adequately take p.o. and be discharged. (Robbin Marmolejo) - Data Points Laboratory Results: Laboratory Results 10/25/16 04:40 10/25/16 06:45 10/25/16 10/25/16 10/25/16 07:16 06:45 04:40 WBC RBC Hgb Hct MCV MCH MCHC RDW Plt Count MPV Neut % (Auto) Lymph % (Auto) [place] % (Auto) Eos % (Auto) Baso % (Auto) Nucleat RBC Rel Count Absolute Neuts (auto) Absolute Lymphs (auto) Absolute Monos (auto) Absolute Eos (auto) Absolute Basos (auto) Absolute Nucleated RBC Immature Gran % Immature Gran # Sodium 136 mEq/L mEq/L 136 mEq/L mEq/L (134-144) (134-144) Potassium 5.3 mEq/L H mEq/L 4.9 mEq/L mEq/L (3.5-5.2) (3.5-5.2) Chloride 112 mEq/L H D mEq/L 102 mEq/L mEq/L (97-110) (97-110) Carbon Dioxide 14 mEq/l L mEq/l 12 mEq/l L mEq/l (22-31) (22-31) Anion Gap 10 mEq/L mEq/L 22 mEq/L H mEq/L (8-16) (8-16) BUN 13 mg/dL mg/dL 15 mg/dL mg/dL (7-23) (7-23) Creatinine 0.6 mg/dL mg/dL 0.7 mg/dL mg/dL (0.6-1.0) (0.6-1.0) Estimated GFR > 60 > 60 Glucose 113 mg/dL H D mg/dL 243 mg/dL H mg/dL (70-100) (70-100) Calcium 8.0 mg/dL L D mg/dL 10.5 mg/dL H mg/dL (8.5-10.4) (8.5-10.4) Total Bilirubin 1.9 mg/dL H mg/dL (0.1-1.4) Conjugated Bilirubin 0.8 mg/dL H mg/dL (0.0-0.5) Unconjugated Bilirubin 1.1 mg/dL mg/dL (0.0-1.1) AST 115 IU/L H IU/L (14-46) ALT 104 IU/L H IU/L (9-52) Alkaline Phosphatase 123 IU/L IU/L (38-126) Total Protein 9.7 g/dL H g/dL (6.3-8.2) Albumin 5.5 g/dL H g/dL (3.5-5.0) Lipase 234.0 IU/L IU/L (23-300) Specimen Hemolysis 137 Urine Color PALE YELLOW Urine Appearance CLEAR Urine pH 5.0 (5.0-7.5) Ur Specific [place] 1.011 (1.002-1.030) Urine Protein 1+ H (NEGATIVE) Urine Ketones 2+ H (NEGATIVE) Urine Blood 2+ H (NEGATIVE) Urine Nitrate NEGATIVE (NEGATIVE) Urine Bilirubin NEGATIVE (NEGATIVE) Urine Urobilinogen NEGATIVE EU EU (0.2-1.0) Ur Leukocyte Esterase NEGATIVE (NEGATIVE) Urine RBC 3-5 /hpf H /hpf (0-3) Urine WBC 1-3 /hpf /hpf (0-3) Ur Epithelial Cells NONE SEEN /lpf /lpf (NONE-1+) Hyaline Casts 1-5 /lpf /lpf (0-1) Urine Mucus TRACE /lpf /lpf (NONE-1+) Urine Glucose NEGATIVE (NEGATIVE) 10/25/16 04:40 WBC 13.63 10^3/uL H 10^3/uL (3.80-9.50) RBC 5.71 10^6/uL H 10^6/uL (4.18-5.33) Hgb 18.1 g/dL H g/dL (12.6-16.3) Hct 53.0 % H % (38.0-47.0) MCV 92.8 fL fL (81.5-99.8) MCH 31.7 pg pg (27.9-34.1) MCHC 34.2 g/dL g/dL (32.4-36.7) RDW 12.5 % % (11.5-15.2) Plt Count 210 10^3/uL 10^3/uL (150-400) MPV 10.3 fL fL (8.7-11.7) Neut % (Auto) 79.0 % H % (39.3-74.2) Lymph % (Auto) 10.6 % L % (15.0-45.0) [place] % (Auto) 9.8 % % (4.5-13.0) Eos % (Auto) 0.0 % L % (0.6-7.6) Baso % (Auto) 0.2 % L % (0.3-1.7) Nucleat RBC Rel Count 0.0 % % (0.0-0.2) Absolute Neuts (auto) 10.77 10^3/uL H 10^3/uL (1.70-6.50) Absolute Lymphs (auto) 1.45 10^3/uL 10^3/uL (1.00-3.00) Absolute Monos (auto) 1.33 10^3/uL H 10^3/uL (0.30-0.80) Absolute Eos (auto) 0.00 10^3/uL L 10^3/uL (0.03-0.40) Absolute Basos (auto) 0.03 10^3/uL 10^3/uL (0.02-0.10) Absolute Nucleated RBC 0.00 10^3/uL 10^3/uL (0-0.01) Immature Gran % 0.4 % % (0.0-1.1) Immature Gran # 0.05 10^3/uL 10^3/uL (0.00-0.10) Sodium Potassium Chloride Carbon Dioxide Anion Gap BUN Creatinine Estimated GFR Glucose Calcium Total Bilirubin Conjugated Bilirubin Unconjugated Bilirubin AST ALT Alkaline Phosphatase Total Protein Albumin Lipase Specimen Hemolysis Urine Color Urine Appearance Urine pH Ur Specific [place] Urine Protein Urine Ketones Urine Blood Urine Nitrate Urine Bilirubin Urine Urobilinogen Ur Leukocyte Esterase Urine RBC Urine WBC Ur Epithelial Cells Hyaline Casts Urine Mucus Urine Glucose Medications Given: Discontinued Medications Haloperidol Lactate (Haldol Injection) 2.5 mg IVP EDNOW ONE Stop: 10/25/16 05:34 Last Admin: 10/25/16 05:38 Dose: 2.5 mg Sodium Chloride (Ns) 1,000 mls @ 0 mls/hr IV ONCE ONE PRN Reason: Wide Open Stop: 10/25/16 04:23 Last Admin: 10/25/16 04:40 Dose: 1,000 mls Sodium Chloride (Ns) 1,000 mls @ 0 mls/hr IV ONCE ONE PRN Reason: Wide Open Stop: 10/25/16 05:33 Last Admin: 10/25/16 05:33 Dose: 1,000 mls Sodium Chloride (Ns) 1,000 mls @ 0 mls/hr IV ONCE ONE PRN Reason: Wide Open Stop: 10/25/16 06:07 Last Admin: 10/25/16 06:06 Dose: 1,000 mls Lorazepam (Ativan Injection) 1 mg IVP EDNOW ONE Stop: 10/25/16 04:23 Last Admin: 10/25/16 04:42 Dose: 1 mg Lorazepam (Ativan Injection) 1 mg IVP EDNOW ONE Stop: 10/25/16 08:04 Last Admin: 10/25/16 08:18 Dose: 1 mg Ondansetron HCl (Zofran) 4 mg IVP EDNOW ONE Stop: 10/25/16 04:23 Last Admin: 10/25/16 04:43 Dose: 4 mg Departure - Departure Disposition: [facility] Acute Clinical Impression: Dehydration, Alcoholic liver failure Vomiting Qualifiers: Vomiting type: unspecified Vomiting Intractability: intractable Nausea presence : with nausea Qualified Code(s): R11.2 - Nausea with vomiting, unspecified Condition: Fair Referrals: VERONICA CERDA [Other] - As per Instructions
[2016-10-25 05:01] LABS: % IMMATURE GRANULYOCYTES 0.4 % (0.0-1.1); ABSOLUTE IMMATURE GRANULOCYTES 0.05 10^3/uL (0.00-0.10); ADD DIFF? NO; ADD MORPH? NO; ADD SCAN? NO; ATYPICAL LYMPHOCYTE FLAG 0 (0-99); FRAGMENT RBC FLAG 0 (0-99); HEMOGLOBIN 18.1 g/dL (12.6-16.3); LEFT SHIFT FLG 0 (0-99); LIPEMIA HEMOLYSIS FLAG 90 (0-99); MEAN CELL HEMOGLOBIN 31.7 pg (27.9-34.1); MEAN CELL HEMOGLOBIN CONCENTR. 34.2 g/dL (32.4-36.7); MEAN CELL VOLUME 92.8 fL (81.5-99.8); MEAN PLATELET VOLUME 10.3 fL (8.7-11.7); PLATELET CLUMPS FLAG 30 (0-99); PLATELET COUNT 210 10^3/uL (150-400); RED BLOOD CELL COUNT 5.71 10^6/uL (4.18-5.33); RED CELL DISTRIBUTION WIDTH 12.5 % (11.5-15.2)
[2016-10-25 05:05] LABS: ALANINE AMINOTRANSFERASE 104 IU/L (9-52); ALBUMIN 5.5 g/dL (3.5-5.0); ALKALINE PHOSPHATASE 123 IU/L (38-126); ANION GAP 22 mEq/L (8-16); ASPARTATE AMINOTRANSFERASE 115 IU/L (14-46); BILIRUBIN,TOTAL 1.9 mg/dL (0.1-1.4); BILIRUBIN-CONJUGATED 0.8 mg/dL (0.0-0.5); BILIRUBIN-UNCONJUGATED 1.1 mg/dL (0.0-1.1); CALCIUM 10.5 mg/dL (8.5-10.4); CARBON DIOXIDE 12 mEq/l (22-31); CHLORIDE 102 mEq/L (97-110); CREATININE 0.7 mg/dL (0.6-1.0); GLOMERULAR FILTRATION RATE > 60; GLUCOSE 243 mg/dL (70-100); POTASSIUM 4.9 mEq/L (3.5-5.2); SODIUM 136 mEq/L (134-144); TOTAL PROTEIN 9.7 g/dL (6.3-8.2)
[2016-10-25] MEDS ORDERED: HALOPERIDOL LACT 5 MG/ML INJ IVP ONE (05:33)
[2016-10-25] MEDS ORDERED: CHLORDIAZEPOXIDE 25MG PREPK#6 BTL TAKEHOME ONE (05:48)
[2016-10-25 07:20] LABS: ANION GAP 10 mEq/L (8-16); CARBON DIOXIDE 14 mEq/l (22-31); CHLORIDE 112 mEq/L (97-110); CREATININE 0.6 mg/dL (0.6-1.0); GLOMERULAR FILTRATION RATE > 60; GLUCOSE 113 mg/dL (70-100); POTASSIUM 5.3 mEq/L (3.5-5.2); SODIUM 136 mEq/L (134-144); SPECIMEN HEMOLYSIS 137
[2016-10-25 07:30] LABS: COLOR PALE YELLOW; LEUKOCYTE ESTERASE,URINE NEGATIVE (NEGATIVE); NITRITE,URINE NEGATIVE (NEGATIVE)
[2016-10-25 07:34] LABS: MUCUS TRACE /lpf (NONE-1+)
[2016-10-25] MEDS ORDERED: MAG HYDROX/AL HYDROX/SIMETH 30 ML UDCUP PO PRN (14:00)
[2016-10-25] MEDS ORDERED: oxyCODONE IR 5 MG TAB PO PRN (14:00)
[2016-10-25] MEDS ORDERED: PROTOCOL POTASSIUM 1 DOSE MISC PRN (14:00)
[2016-10-25] MEDS ORDERED: PROTOCOL CALCIUM 1 DOSE IV PRN (14:00)
[2016-10-25] MEDS ORDERED: ONDANSETRON DISINTEGRATING 4 MG TAB PO PRN (14:00)
[2016-10-25] MEDS ORDERED: NS 1,000 ML IV SCH (14:00)
[2016-10-25] MEDS ORDERED: PROTOCOL MAGNESIUM 1 DOSE IV PRN (14:00)
[2016-10-25] MEDS ORDERED: LORazepam 1 MG TAB PO PRN (14:00)
[2016-10-25] MEDS ORDERED: LORazepam 2 MG/ML INJ IVP PRN ×2 (14:00)
[2016-10-25] MEDS ORDERED: PROTOCOL K PHOSPHATE 1 DOSE IV PRN (14:00)
[2016-10-25] MEDS ORDERED: ACETAMINOPHEN 325 MG TAB PO PRN (14:00)
[2016-10-25] MEDS ORDERED: PROMETHAZINE HCL 25 MG TAB PO PRN (14:00)
[2016-10-25] MEDS ORDERED: ONDANSETRON 4 MG/2 ML VIAL IVP PRN (14:00)
--- NOTE | 2016-10-25 14:26 | PDGENHP ---
History and Physical - Chief Complaint nausea and vomiting - History of Present Illness 66 yo F with PMH of etoh related cirrhosis and continued etoh abuse presenting with n/v that has been going on nearly 12 hours. She notes she had a night of fairly significant drinking on Sunday, but denies any etoh since Sunday night. She began to feel ill on the evening of Sunday and continued having n/v for the following 24 hours, vomiting about every 2-3 hours despite using phenergan and zofran which she had at home. She notes she has had similar bouts in the past, always in the setting of drinking too much alcohol. She denies any coffee ground emesis, but notes that some of her vomit was reddish/pink which she attributes to eating beets and drinking a red colored drink today. She does have a hx of variceal bleed in the past. History Information - Allergies/Home Medication List Allergies/Adverse Reactions: No Known Allergies Allergy (Verified 07/16/16 14:26) Home Medications: NK [No Known Home Meds] 10/25/16 [Last Taken Unknown] I have personally reviewed and updated: family history, medical history, social history, surgical history - Past Medical History GI bleed (2/2 esophageal varices) Additional medical history: cirrhosis. etoh abuse. osteoporosis - Surgical History Additional surgical history: tonsillectomy - Family History Positive for: cancer (mother with lung cancer, sister with htn) - Social History Smoking Status: Current every day smoker Alcohol Use: Heavy Drug Use: Marijuana Additional social history: lives alone Review of Systems ROS: 10pt was reviewed & negative except for what was stated in HPI & below Physical Exam Temp Pulse Resp BP Pulse Ox 36.8 C 116 H 13 153/81 H 100 10/25/16 13:28 10/25/16 13:28 10/25/16 13:28 10/25/16 13:28 10/25/16 13:28 Constitutional: appears nourished, chronically ill appearing, unkempt Eyes: PERRL, anicteric sclera Ears, Nose, Mouth, Throat: moist mucous membranes, poor dentition Cardiovascular: regular rate and rhythym, tachycardia, No edema Respiratory: no respiratory distress, no rales or rhonchi Gastrointestinal: normoactive bowel sounds, soft, non-tender abdomen Genitourinary: no bladder tenderness Skin: warm, normal color Musculoskeletal: full muscle strength Neurologic: AAOx3 Psychiatric: interacting appropriately, not anxious, not encephalopathic Lab Data & Imaging Review 10/25/16 04:40 10/25/16 06:45 WBC 13.63 10^3/uL (3.80-9.50) H 10/25/16 04:40 RBC 5.71 10^6/uL (4.18-5.33) H 10/25/16 04:40 Hgb 18.1 g/dL (12.6-16.3) H 10/25/16 04:40 Hct 53.0 % (38.0-47.0) H 10/25/16 04:40 MCV 92.8 fL (81.5-99.8) 10/25/16 04:40 MCH 31.7 pg (27.9-34.1) 10/25/16 04:40 MCHC 34.2 g/dL (32.4-36.7) 10/25/16 04:40 RDW 12.5 % (11.5-15.2) 10/25/16 04:40 Plt Count 210 10^3/uL (150-400) 10/25/16 04:40 MPV 10.3 fL (8.7-11.7) 10/25/16 04:40 Neut % (Auto) 79.0 % (39.3-74.2) H 10/25/16 04:40 Lymph % (Auto) 10.6 % (15.0-45.0) L 10/25/16 04:40 [place] % (Auto) 9.8 % (4.5-13.0) 10/25/16 04:40 Eos % (Auto) 0.0 % (0.6-7.6) L 10/25/16 04:40 Baso % (Auto) 0.2 % (0.3-1.7) L 10/25/16 04:40 Nucleat RBC Rel Count 0.0 % (0.0-0.2) 10/25/16 04:40 Absolute Neuts (auto) 10.77 10^3/uL (1.70-6.50) H 10/25/16 04:40 Absolute Lymphs (auto) 1.45 10^3/uL (1.00-3.00) 10/25/16 04:40 Absolute Monos (auto) 1.33 10^3/uL (0.30-0.80) H 10/25/16 04:40 Absolute Eos (auto) 0.00 10^3/uL (0.03-0.40) L 10/25/16 04:40 Absolute Basos (auto) 0.03 10^3/uL (0.02-0.10) 10/25/16 04:40 Absolute Nucleated RBC 0.00 10^3/uL (0-0.01) 10/25/16 04:40 Immature Gran % 0.4 % (0.0-1.1) 10/25/16 04:40 Immature Gran # 0.05 10^3/uL (0.00-0.10) 10/25/16 04:40 Sodium 136 mEq/L (134-144) 10/25/16 06:45 Potassium 5.3 mEq/L (3.5-5.2) H 10/25/16 06:45 Chloride 112 mEq/L (97-110) H D 10/25/16 06:45 Carbon Dioxide 14 mEq/l (22-31) L 10/25/16 06:45 Anion Gap 10 mEq/L (8-16) 10/25/16 06:45 BUN 13 mg/dL (7-23) 10/25/16 06:45 Creatinine 0.6 mg/dL (0.6-1.0) 10/25/16 06:45 Estimated GFR > 60 10/25/16 06:45 Glucose 113 mg/dL (70-100) H D 10/25/16 06:45 Calcium 8.0 mg/dL (8.5-10.4) L D 10/25/16 06:45 Total Bilirubin 1.9 mg/dL (0.1-1.4) H 10/25/16 04:40 Conjugated Bilirubin 0.8 mg/dL (0.0-0.5) H 10/25/16 04:40 Unconjugated Bilirubin 1.1 mg/dL (0.0-1.1) 10/25/16 04:40 AST 115 IU/L (14-46) H 10/25/16 04:40 ALT 104 IU/L (9-52) H 10/25/16 04:40 Alkaline Phosphatase 123 IU/L (38-126) 10/25/16 04:40 Total Protein 9.7 g/dL (6.3-8.2) H 10/25/16 04:40 Albumin 5.5 g/dL (3.5-5.0) H 10/25/16 04:40 Lipase 234.0 IU/L (23-300) 10/25/16 04:40 Specimen Hemolysis 137 10/25/16 06:45 Urine Color PALE YELLOW 10/25/16 07:16 Urine Appearance CLEAR 10/25/16 07:16 Urine pH 5.0 (5.0-7.5) 10/25/16 07:16 Ur Specific [place] 1.011 (1.002-1.030) 10/25/16 07:16 Urine Protein 1+ (NEGATIVE) H 10/25/16 07:16 Urine Ketones 2+ (NEGATIVE) H 10/25/16 07:16 Urine Blood 2+ (NEGATIVE) H 10/25/16 07:16 Urine Nitrate NEGATIVE (NEGATIVE) 10/25/16 07:16 Urine Bilirubin NEGATIVE (NEGATIVE) 10/25/16 07:16 Urine Urobilinogen NEGATIVE EU (0.2-1.0) 10/25/16 07:16 Ur Leukocyte Esterase NEGATIVE (NEGATIVE) 10/25/16 07:16 Urine RBC 3-5 /hpf (0-3) H 10/25/16 07:16 Urine WBC 1-3 /hpf (0-3) 10/25/16 07:16 Ur Epithelial Cells NONE SEEN /lpf (NONE-1+) 10/25/16 07:16 Hyaline Casts 1-5 /lpf (0-1) 10/25/16 07:16 Urine Mucus TRACE /lpf (NONE-1+) 10/25/16 07:16 Urine Glucose NEGATIVE (NEGATIVE) 10/25/16 07:16 Assessment & Plan Assessment: 66 yo F with pmh of etoh abuse and cirrhosis presenting with n/v # n/v: in setting of heavy etoh abuse which patient admits to the day prior to n /v beginning. No abdominal pain, no fevers or chills or other s/s of infection. No diarrhea. Suspect all related to heavy drinking. Will continue prn zofran/ phenergan, IVF and monitor. Advancing diet as tolerated and if able to tolerate PO without significant issues will likely be able to dc soon. # tachycardia: improved s/p IVF but still mildly tachy. No other s/s of w/d, but this could represent early w/d sxs. Monitoring on tele and on personal review of tele monitoring appears c/w sinus tach. # etoh abuse: per patient she has cut down in her drinking, though notes that on Sunday she had at least 6 drinks. Will monitor on ciwa, mvi/thiamine/folate # gerd: patient requesting PPI, likely also related to heavy etoh use # cirrhosis: with complications including variceal bleed in the past. Appears currently compensated, bili mildly elevated as well as mild transaminitis. Will check coags for a better sense of synthetic function and trend lfts. # dispo: likely dc in next 24 hours, observation status Patient new to my care. Old records reviewed and summarized as above. Care plan reviewed with ER doctor including plans for monitoring n/v
[2016-10-25] MEDS ORDERED: PANTOPRAZOLE SODIUM 40 MG TAB PO SCH (14:45)
[2016-10-25 15:56] VITALS: TEMP 98.1; O2SAT 97
[2016-10-25 16:00] VITALS: BP 156/77; PULSE 100; RESP 17
--- NOTE | 2016-10-25 18:12 | PDDCSUM ---
Discharge Summary Discharge Summary: Dates of service 10/25/2016 Discharge diagnosis: # nausea/vomting # etoh abuse # etoh cirrhosis # tachycardia Hospital course by problem: # n/v: in the setting of heavy etoh use and typical for her, suspect largely simply related to etoh binge. Now resolved, tolerating diet. Has rx for phenergan at home, will give rx for zofran as well. # etoh abuse: as above, patient previously quit when she found out she has cirrhosis but now drinking heavily again, not interested in quitting. Likely beginning to have w/d and again since she is not quitting, will dc home # etoh cirrhosis: compensated currently # tachycardia: improved s/p 3L of fluid, mild residual tachycardia likely related to withdrawal DC home f/u with PCP
[2016-10-26] MEDS ORDERED: FOLIC ACID 1 MG TAB PO SCH (09:00)
[2016-10-26] MEDS ORDERED: ENOXAPARIN 40 MG/0.4 ML SYR SC SCH (09:00)
[2016-10-26] MEDS ORDERED: MULTIVITAMINS 1 EACH TAB PO SCH (09:00)
[2016-10-28] MEDS ORDERED: THIAMINE HCL 100 MG TAB PO SCH (09:00)
== END 2016-10-25 18:49 | disposition home or self-care (01) ==
LOC: F2N 13:32
PROVIDERS: ADMIT Internal Medicine; ATTEND Internal Medicine
DX: R11.2 Nausea with vomiting, unspecified (principal); F10.20 Alcohol dependence, uncomplicated; K70.30 Alcoholic cirrhosis of liver without ascites; R00.0 Tachycardia, unspecified
CPT/HCPCS: 96361; 96374; 96375; 96376; 99285; G0378; J2060; J2405

== ENCOUNTER 2016-10-27 09:08 | Inpatient (IN) | payer OTHER ==
--- NOTE | 2016-10-27 09:18 | EDPHY ---
H & P Stated Complaint: N/V/D seen sunday Time Seen by Provider: 10/27/16 09:18 HPI/ROS: CHIEF COMPLAINT: Vomiting HISTORY OF PRESENT ILLNESS: The patient presents to the ED with vomiting for the past 2 days. The patient was seen in the emergency department on Sunday of this week and admitted to the hospital with alcoholic gastritis. She was discharged home on Sunday. The patient states that she has not had alcohol since Sunday. The patient reported she had vomiting after every meal yesterday. She continued to have vomiting today. She has taken Zofran ODTs at home without improvement of her symptoms. The patient reported yesterday she had 2 episodes of a very dark diarrhea. She has had normal bowel movements today. She reportedly has a history of esophageal varices per her past medical record. REVIEW OF SYSTEMS: A comprehensive 10 point review of systems is otherwise negative aside from elements mentioned in the history of present illness. Source: Patient Exam Limitations: No limitations - Personal History Current Tetanus/Diphtheria Vaccine: Unsure Current Tetanus Diphtheria and Acellular Pertussis (TDAP): Unsure Tetanus Vaccine Date: <10 years - Medical/Surgical History Hx Asthma: No Hx Chronic Respiratory Disease: No Hx Diabetes: No Hx Cardiac Disease: No Hx Renal Disease: No Hx Cirrhosis: Yes Hx Alcoholism: Yes Hx HIV/AIDS: No Hx Splenectomy or Spleen Trauma: No Other PMH: Alcoholism, liver disease, anemia, gi bleed, esophageal varacies, falls related to alcohol, hip fracture, paracentesis procedure, osteoporosis - Social History Smoking Status: Current every day smoker - Physical Exam Exam: General Appearance: Alert, no distress Eyes: Pupils equal and round no pallor or injection ENT, Mouth: Mucous membranes moist Respiratory: There are no retractions, lungs are clear to auscultation Cardiovascular: Regular rate and rhythm Gastrointestinal: Abdomen is soft and nontender, no masses, bowel sounds normal Rectal exam: Greenish ground stool present, no obvious melena or hematochezia Neurological: A&O, normal motor function, normal sensory exam, normal cranial nerves Skin: Warm and dry, no rashes Musculoskeletal: Neck is supple nontender Extremities: symmetrical, full range of motion Constitutional: Initial Vital Signs Temperature (C) 36.4 C 10/27/16 09:10 Heart Rate 118 H 10/27/16 09:10 Respiratory Rate 20 10/27/16 09:10 Blood Pressure 130/92 H 10/27/16 09:10 O2 Sat (%) 97 10/27/16 09:10 O2 Delivery Mode Room Air Allergies/Adverse Reactions: No Known Allergies Allergy (Verified 07/16/16 14:26) Home Medications: Medication Instructions Recorded Acetaminophen [Tylenol 325mg (*)] 650 mg PO Q4HRS PRN #0 tab 10/25/16 Folic Acid [Folic Acid 1 MG (*)] 1 mg PO DAILY tab 10/25/16 Multivitamins [Multivitamin (*)] 1 each PO DAILY tab 10/25/16 Ondansetron Odt [Zofran Odt 4 mg 4 mg PO Q4 #24 tab 10/25/16 (*)] Thiamine HCl [Vitamin B-1] 100 mg PO DAILY tab 10/25/16 Medical Decision Making ED Course/Re-evaluation: I reviewed the patient's past medical records including her ED visit and hospitalization earlier this week. The patient presents the ED with intractable vomiting. She had an IV established. She received a L of normal saline and 10 mg of IV Reglan. The patient does have heme-positive stool. The patient was noted to be hypokalemic. She did receive potassium replacement. The patient underwent multiple examinations in the ED. She did develop recurrent vomiting. Given the patient's hypokalemia and reported history of melena yesterday with her history of variceal bleeding I do feel she should be admitted for observation this evening. The patient will be admitted to the hospital under the care of Dr. Rosalinda Ordaz. Differential Diagnosis: Differential diagnosis considered includes upper GI bleed, lower GI bleed, metabolic abnormality, dehydration, alcohol withdrawal - Data Points Laboratory Results: Laboratory Results 10/27/16 09:31 10/27/16 09:31 10/27/16 10/27/16 10/27/16 10:03 09:31 09:31 WBC 7.55 10^3/uL 10^3/uL (3.80-9.50) RBC 5.50 10^6/uL H 10^6/uL (4.18-5.33) Hgb 17.5 g/dL H g/dL (12.6-16.3) Hct 47.0 % % (38.0-47.0) MCV 85.5 fL D fL (81.5-99.8) MCH 31.8 pg pg (27.9-34.1) MCHC 37.2 g/dL H g/dL (32.4-36.7) RDW 11.9 % % (11.5-15.2) Plt Count 152 10^3/uL D 10^3/uL (150-400) MPV 10.5 fL fL (8.7-11.7) Neut % (Auto) 69.4 % % (39.3-74.2) Lymph % (Auto) 20.1 % % (15.0-45.0) [place] % (Auto) 9.5 % % (4.5-13.0) Eos % (Auto) 0.1 % L % (0.6-7.6) Baso % (Auto) 0.5 % % (0.3-1.7) Nucleat RBC Rel Count 0.0 % % (0.0-0.2) Absolute Neuts (auto) 5.23 10^3/uL 10^3/uL (1.70-6.50) Absolute Lymphs (auto) 1.52 10^3/uL 10^3/uL (1.00-3.00) Absolute Monos (auto) 0.72 10^3/uL 10^3/uL (0.30-0.80) Absolute Eos (auto) 0.01 10^3/uL L 10^3/uL (0.03-0.40) Absolute Basos (auto) 0.04 10^3/uL 10^3/uL (0.02-0.10) Absolute Nucleated RBC 0.00 10^3/uL 10^3/uL (0-0.01) Immature Gran % 0.4 % % (0.0-1.1) Immature Gran # 0.03 10^3/uL 10^3/uL (0.00-0.10) Sodium 133 mEq/L L mEq/L (134-144) Potassium 2.9 mEq/L L mEq/L (3.5-5.2) Chloride 97 mEq/L D mEq/L (97-110) Carbon Dioxide 21 mEq/l L D mEq/l (22-31) Anion Gap 15 mEq/L mEq/L (8-16) BUN 9 mg/dL mg/dL (7-23) Creatinine 0.5 mg/dL L mg/dL (0.6-1.0) Estimated GFR > 60 Glucose 138 mg/dL H mg/dL (70-100) Calcium 9.6 mg/dL D mg/dL (8.5-10.4) Total Bilirubin 2.1 mg/dL H mg/dL (0.1-1.4) Conjugated Bilirubin 0.3 mg/dL mg/dL (0.0-0.5) Unconjugated Bilirubin 1.8 mg/dL H mg/dL (0.0-1.1) AST 66 IU/L H IU/L (14-46) ALT 71 IU/L H IU/L (9-52) Alkaline Phosphatase 95 IU/L IU/L (38-126) Total Protein 8.1 g/dL g/dL (6.3-8.2) Albumin 4.7 g/dL g/dL (3.5-5.0) Lipase 73.0 IU/L IU/L (23-300) Stool Occult Bld Scrn POSITIVE H (NEGATIVE) Medications Given: Discontinued Medications Sodium Chloride (Ns) 1,000 mls @ 0 mls/hr IV ONCE ONE PRN Reason: Wide Open Stop: 10/27/16 09:23 Last Admin: 10/27/16 09:40 Dose: 1,000 mls Lorazepam (Ativan Injection) 0.5 mg IVP EDNOW ONE Stop: 10/27/16 09:24 Last Admin: 10/27/16 09:40 Dose: 0.5 mg Metoclopramide HCl (Reglan Injection) 10 mg IVP EDNOW ONE Stop: 10/27/16 09:24 Last Admin: 10/27/16 09:40 Dose: 10 mg Potassium Chloride (Potassium Chloride Oral Liquid) 40 meq PO EDNOW ONE Stop: 10/27/16 11:09 Last Admin: 10/27/16 11:22 Dose: 40 meq Departure - Departure Disposition: [facility] Acute Clinical Impression: Vomiting, Hypokalemia Condition: Fair Referrals: Toya Harper MD [Primary Care Provider] - As per Instructions
[2016-10-27] MEDS ORDERED: NS 1,000 ML IV ONE (09:22)
[2016-10-27] MEDS ORDERED: LORazepam 2 MG/ML INJ IVP ONE (09:23)
[2016-10-27] MEDS ORDERED: METOCLOPRAMIDE 10 MG/2 ML VIAL IVP ONE (09:23)
[2016-10-27 10:24] LABS: % IMMATURE GRANULYOCYTES 0.4 % (0.0-1.1); ABSOLUTE IMMATURE GRANULOCYTES 0.03 10^3/uL (0.00-0.10); ADD DIFF? NO; ADD MORPH? NO; ADD SCAN? NO; ATYPICAL LYMPHOCYTE FLAG 0 (0-99); FRAGMENT RBC FLAG 0 (0-99); HEMOGLOBIN 17.5 g/dL (12.6-16.3); LEFT SHIFT FLG 0 (0-99); LIPEMIA HEMOLYSIS FLAG 90 (0-99); MEAN CELL HEMOGLOBIN 31.8 pg (27.9-34.1); MEAN CELL HEMOGLOBIN CONCENTR. 37.2 g/dL (32.4-36.7); MEAN CELL VOLUME 85.5 fL (81.5-99.8); MEAN PLATELET VOLUME 10.5 fL (8.7-11.7); PLATELET CLUMPS FLAG 0 (0-99); PLATELET COUNT 152 10^3/uL (150-400); RED CELL DISTRIBUTION WIDTH 11.9 % (11.5-15.2)
[2016-10-27 10:34] LABS: ALANINE AMINOTRANSFERASE 71 IU/L (9-52); ALBUMIN 4.7 g/dL (3.5-5.0); ALKALINE PHOSPHATASE 95 IU/L (38-126); ANION GAP 15 mEq/L (8-16); ASPARTATE AMINOTRANSFERASE 66 IU/L (14-46); BILIRUBIN,TOTAL 2.1 mg/dL (0.1-1.4); BILIRUBIN-CONJUGATED 0.3 mg/dL (0.0-0.5); BILIRUBIN-UNCONJUGATED 1.8 mg/dL (0.0-1.1); CALCIUM 9.6 mg/dL (8.5-10.4); CARBON DIOXIDE 21 mEq/l (22-31); CHLORIDE 97 mEq/L (97-110); CREATININE 0.5 mg/dL (0.6-1.0); GLOMERULAR FILTRATION RATE > 60; GLUCOSE 138 mg/dL (70-100); POTASSIUM 2.9 mEq/L (3.5-5.2); SODIUM 133 mEq/L (134-144); TOTAL PROTEIN 8.1 g/dL (6.3-8.2)
[2016-10-27] MEDS ORDERED: POTASSIUM CL 20 MEQ/15 ML UDCUP PO ONE (11:08)
[2016-10-27] MEDS ORDERED: ONDANSETRON 4 MG/2 ML VIAL IVP ONE (12:48)
[2016-10-27] MEDS ORDERED: LORazepam 1 MG TAB PO PRN (13:17)
[2016-10-27] MEDS ORDERED: PROTOCOL POTASSIUM 1 DOSE MISC PRN (13:18)
[2016-10-27] MEDS ORDERED: ONDANSETRON 4 MG/2 ML VIAL IVP PRN (13:19)
[2016-10-27] MEDS ORDERED: ACETAMINOPHEN 500 MG TAB PO PRN (13:19)
[2016-10-27] MEDS ORDERED: ONDANSETRON DISINTEGRATING 4 MG TAB PO PRN (13:22)
[2016-10-27] MEDS ORDERED: METOCLOPRAMIDE 10 MG/2 ML VIAL IVP PRN (14:06)
--- NOTE | 2016-10-27 14:53 | GHP ---
[f rep st] HISTORY AND PHYSICAL DATE OF ADMISSION: 10/27/2016 CHIEF COMPLAINT: Nausea, vomiting, and black tarry stools. HISTORY OF PRESENT ILLNESS: The patient is a 66-year-old female, who was just discharged from [facility] 2 days ago, where she had a brief observation period for nausea and vomiting. She went home and continued to have persistent vomiting without any improvement. She has been unable to keep anything down, except for slight sips of water. Two days ago she developed diarrhea. She montez cribes black tarry stools. There has been no hematemesis. There is no abdominal pain. 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 When she was first told she had liver disease she quit drinking completely for many years. She is now drinking only 1-2 beverages per week, on a soci al basis, when she goes out with family or friends. She adamantly denies heavy drinking. PAST MEDICAL HISTORY: 1. Alcohol cirrhosis. 2. Esophageal varices with bleed. 3. Ascites. PAST SURGICAL HISTORY: Hip fracture. MEDICATIONS: Please see computer records for full detailed list. ALLERGIES: No known drug allergies. SOCIAL HISTORY: She has never been a smoker. She smokes marijuana every night. She has 1-2 drinks per week, only social, had one mimosa on Mother's Day, when her son brought her out for [employer]. Estiven hahn lives alone. REVIEW OF SYSTEMS: Complete review of systems obtained. Review of systems are negative regarding c onstitutional, HEENT, GI, pulmonary, cardiovascular, , hematology, skin, musculoskeletal, endocrin e, psych, except or positives as in HPI. FAMILY HISTORY: Reviewed and noncontributory to presenting complaint. PHYSICAL EXAMINATION: GENERAL: Well-developed, well-nourished female, in no acute distress. VITAL SIGNS: Temperature is 36.7, pulse 118, blood pressure 102/69, saturating 96% on room air. EYES: Normal conjunctivae. Pupils equal, round, and reactive to light. ENT: Normal ears, nose. Hearing intact. Normal lips and teeth. Oropharynx is moist. NECK: Trachea midline. No thyromegaly. CH EST: Normal respiratory effort. LUNGS: Clear to auscultation bilaterally. CARDIOVASCULAR: Regul ar rate and rhythm. No murmur. No lower extremity edema. ABDOMEN: Soft, nontender. No hepatospl enomegaly. I do not appreciate any ascites. SKIN: Warm, dry, intact, without rash. MUSCULOSKELET AL: No cyanosis or clubbing. Strength 5/5 upper and lower extremities. NEURO: Cranial nerves int act. Normal sensation to light touch. PSYCH ASSESSMENT: Alert and oriented x3. Normal affect. N ormal judgment and insight. Normal memory. LABORATORY DATA: White count 7.55, hematocrit 47, platelets 152. Sodium 133, potassium 2.9, chlori de 97, bicarb 21, BUN 9, creatinine 0.5, glucose 138, total bili 2.1. AST is 66, ALT is 7.1. MEDICAL RECORD REVIEW: She had a brief, less than 24 hour observation admit earlier this week, when she was discharged home with minimal workup. There was no imaging in our system of her liver back to 2000. ASSESSMENT AND PLAN: 1. Possible upper gastrointestinal bleed. She reports black tarry stools and she has documented he me-positive in the emergency room. She also has unrelenting nausea and vomiting. We will hydrate w ith IV fluids and follow serial H and H's. I have consulted GI, and I have spoken with Dr. Alvarado t alek consider EGD, urgency of which can be considered. I doubt that this is a varicocele bleed. I connor l put her empirically on a proton pump inhibitor. If she starts bleeding more rapidly, would defini tely indicate need for octreotide. She also is a daily marijuana user, which may be contributing to her nausea and vomiting. 2. Hypokalemia, this will be repleted. May need to replete IV if she is unable to tolerate p.o. 3. Alcoholic liver disease. Previous reports of varices and ascites, although, if she has quit dri nking, she may have had some improvement, currently only drinking 1-2 drinks per week, which hopeful ly is true to report. We will check an abdominal ultrasound. Her albumin is good at 4.7, we will c heck an INR. 4. Diarrhea. We will check her stool, GI, PCR panel. CODE STATUS: Full. ADMISSION STATUS: We will admit to observation. Depending on clinical course, we will determine le ngth of hospitalization. Deep vein thrombosis prophylaxis. Since there is concern for bleeding, we will use SCDs only. /[id number]/MODL
[2016-10-27] MEDS: PANTOPRAZOLE SODIUM 40 MG in NS 100 ML IV SCH ×2 (14:58→20:44)
[2016-10-27] MEDS: NS 1,000 ML IV SCH (14:59)
[2016-10-27] MEDS: THIAMINE HCL 500 MG in NS 100 ML IV SCH (15:41)
[2016-10-27] MEDS ORDERED: PROPOFOL/EMULSION 500 MG/50 ML BOTTLE IV ONE (15:56)
[2016-10-27] MEDS ORDERED: MIDAZOLAM 2 MG/2 ML VIAL ONE (15:56)
[2016-10-27] MEDS ORDERED: fentaNYL 100 MCG/2 ML INJ ONE (15:56)
[2016-10-27] MEDS ORDERED: PROPOFOL 200 MG/20 ML VIAL ONE (15:58)
[2016-10-27] MEDS ORDERED: LIDOCAINE 2% 5 ML SDV ONE (15:59)
--- NOTE | 2016-10-27 16:08 | GCON ---
[f rep st] CONSULTATION DATE OF CONSULTATION: 10/27/2016 REFERRING PHYSICIAN: MD Dr. Sushma Cheney, thank you very kindly for asking me to evaluate the patient in consultation for a chief c omplaint of nausea, vomiting, and what is described as melena. She is a 66-year-old female with a h istory of chronic alcoholism and underlying cirrhosis, who was recently hospitalized for an overnigh t stay on Sunday, because of intractable nausea and vomiting. She denies any abdominal pain. She is continuing to drink alcohol on a routine basis, although at much lower volumes than she has histo rically. She had an upper endoscopy about 7 years ago for intractable nausea, vomiting, that she re ports was negative for any substantial disorders. She is not known to have a previous history of bl eeding that she describes, but the chart review mentions esophageal varices. She denies any bleedin g on the admission on Sunday. She describes the vomiting as being bilious and food related. She h ad 2 normal bowel movements on Sunday, while in the hospital, that were normal color. She went vanessa e but continued to feel poorly. She has been unable to tolerate p.o. intake. She has continued to have dry heaves without any hematemesis, but today reported a dark black bowel movement that was joey ewhat moderate in volume. Again, she continues to deny any abdominal pain. She has been a little b it dizzy and lightheaded. She takes no blood thinners. She occasionally uses ibuprofen for a heada cathryn, but is not within the last week. I am asked to assist with further evaluation and management. PAST MEDICAL HISTORY: 1. Alcoholism. 2. Clinically diagnosed with cirrhosis. 3. History of ascites. 4. Chart review reports a history of esophageal varices with bleeding. 5. A traumatic fall with a right hip fracture. PAST SURGICAL HISTORY: An endoscopy 7 years ago, for which I have not seen formal results. A hip f racture, with pinning, from a fall. MEDICATIONS: Tylenol, folate, Ativan, Zofran, pantoprazole, thiamine, ibuprofen intermittently. ALLERGIES: None known. SOCIAL HISTORY: The patient lives in [place]. She is continuing to drink alcohol on a daily basis. She smokes marijuana routinely. No other substance abuse. She is retired. She is in contact wit h her children, whom she sees regularly. FAMILY HISTORY: Negative for cirrhosis, but is significant for alcoholism. REVIEW OF SYSTEMS: CONSTITUTIONAL: Denies fever or chills. She reports anorexia with an inability to tolerate much oral intake. HEENT: Chronic headaches, but none actively. No neck pain. No dif ficulty swallowing, nor sore throat. No epistaxis. PULMONARY: No cough or shortness of breath. C ARDIOVASCULAR: No chest pain, palpitations, or syncope. GI: She reports recurrent nausea, vomitin g, dry heaves, and bilious emesis without hematemesis. She reports 1 episode of melena that was yes terday evening and none since. No bright red hematochezia. RECTAL: In the emergency room, she rep orts had "blood," and in review of record it was a heme-positive stool that was dark. RHEUMATOLOGIC: Negative for joint pain or swelling. DERMATOLOGIC: No jaundice, rash, or pruritus. NEUROLOGIC: She has had a history of falls that sound alcohol related, and possibly due to imbalance or intoxic ation. No paresthesias, seizure activity, or difficulties with memory, cognition, or thinking. GEN ITOURINARY: Denies dysuria, hematuria, or flank pain. ENDOCRINE: No heat or cold intolerance. No polyuria. She does report thirst. PHYSICAL EXAM: VITAL SIGNS: Blood pressure 118/58, with a heart rate of between 98 and 104, oxygen ation is 96% on room air, with a temperature of 36.7, respirations are 18. GENERAL: Comfortable fe male in no acute distress. Alert, oriented, and able to provide her own history. HEENT: Normoceph alic atraumatic. Sclerae anicteric. NECK: Supple. Oropharynx clear. Nares are without blood. N o spider angiomata. PULMONARY: Clear to auscultation bilaterally. CARDIOVASCULAR: Tachycardia wi th systolic murmur, 2/6, at the left sternal border without radiation. GI: Abdomen soft, without o vert ascites and nondistended. Normal bowel sounds. No organomegaly. No tenderness, rebound, or g uarding. No abdominal bruit. MUSCULOSKELETAL: Normal gait and station without cyanosis, clubbing, or palmar erythema. SKIN: Without jaundice or rash. No obvious spider angiomata. No bruising. NEUROLOGIC: Alert to person, place, and time. Normal speech and affect. She is nonfocal with her motor exam and non ataxic. No asterixis. DATABASE: White blood count of 7.5, hematocrit is 47, platelets are 152. Sodium is 139, potassium 2.9, chloride 97, bicarbonate 21, BUN 9, creatinine 0.5. AST 66, ALT 71, alkaline phosphatase 95, t otal bilirubin 2.1, with a conjugated fraction of 0.3. Lipase is 73, albumin 4.7, with a total prot ein of 8.1. An abdominal ultrasound on October 27, 2016, shows cholelithiasis with a mild degree of aura e duct dilation at 9 mm. There is no gallbladder wall thickening or pericholecystic fluid. The vinay er is heterogeneous and diffusely increased in echotexture, and 16 cm in length without focal lesion . The spleen is normal. The pancreas is homogeneous without peripancreatic fluid, although there i s a slight prominence to the pancreatic duct at 4 mm. There is no ascites. IMPRESSION: 1. Nausea with vomiting. 2. Melena. 3. Alcoholism. 4. Cirrhosis with history of variceal bleed. 5. Hypokalemia. 6. Mildly abnormal common bile duct on ultrasound, the cause of which is unknown in the setting of cholelithiasis. RECOMMENDATIONS: 1. Will start with an upper GI endoscopy, given the ongoing nausea and vomiting with recent melena, in the setting of a history of cirrhosis with previous variceal bleeding. 2. Continuous PPI infusion. 3. N.p.o. 4. Anesthesia assistance for the procedure. 5. In regard to her cholelithiasis and mildly dilated common duct, this is occurring in the setting of LFT abnormalities, which have been chronically elevated since 2009 and really unchanged. This i s most likely due to cirrhosis and may be an element of alcoholic related fatty liver. She is witho ut any abdominal pain, making me feel like that gallbladder-related issues such as cholelithiasis wi th cholecystitis or choledocholithiasis and obstruction are less likely. 6. Nonetheless, if her endoscopy is unremarkable for a source of bleeding, and there is no other ex planation for her nausea and vomiting, it may be worth considering an MRCP to better evaluate the di lated ductal anatomy in the setting of a patient with gallstones and abnormal liver tests, although I believe these are unlikely to represent obstruction. 7. In regard to the melena, she has never had a screening colonoscopy, and if her upper endoscopy d oes not exhibit a source of bleeding or evidence of portal hypertension, then a colonoscopy should b e considered for further evaluation. We can discuss this depending on her ongoing symptoms. It wou ld be better for her to be tolerating more of an oral intake before trying a bowel cleanse for a col onoscopy, nonetheless. 8. For now, will begin with upper endoscopy. Continuous IV PPI, monitoring of serial hematocrits, and Anesthesia's assistance for the procedure. 9. Further recommendations to follow her endoscopic outcome. /[id number]/MODL
[2016-10-27] MEDS ORDERED: OCTREOTIDE ACETATE 50 MCG/ML INJ IVP ONE (16:14)
[2016-10-27] MEDS: OCTREOTIDE ACETATE 500 MCG in D5W 50 ML IV SCH (17:49)
[2016-10-27 18:47] LABS: HEMATOCRIT 43.8 % (38.0-47.0); HEMOGLOBIN 16.3 g/dL (12.6-16.3)
[2016-10-27 19:10] LABS: POTASSIUM 3.2 mEq/L (3.5-5.2)
[2016-10-27] MEDS ORDERED: POTASSIUM CL 10 MEQ TAB PO ONE (22:39)
[2016-10-28 01:03] LABS: HEMATOCRIT 42.3 % (38.0-47.0); HEMOGLOBIN 15.8 g/dL (12.6-16.3)
--- NOTE | 2016-10-28 02:04 | GPN ---
[f rep st] PROCEDURE NOTE DATE OF PROCEDURE: 10/27/2016 PROCEDURE: Esophagogastroduodenoscopy with esophageal band ligation. INFORMED CONSENT: Consent was obtained from the patient after the risks and benefits of endoscopy, monitored anesthesia care and possibly control of bleeding including variceal band ligation were dis cussed in detail. All questions were answered. Informed consent was obtained. Preprocedural time- out was performed in the endoscopy suite by myself, GI nursing and anesthesia. ENDOSCOPY: Mary Alice. ANESTHESIA: Dr. Monson. PROCEDURE MEDICATIONS: Propofol per Anesthesiology. COMPLICATIONS: None. ESTIMATED BLOOD LOSS: Minimal. DESCRIPTION OF PROCEDURE: The patient was placed into the left lateral decubitus position with the head of the bed at 30 degrees. The oral bite block was placed. Oxygen was administered by mask. M onitoring was continuous per Anesthesia protocol. Propofol was administered through the IV until sh e was comfortable. The Olympus endoscope was placed into the oral bite block into the hypopharynx, which was normal in appearance without blood. The tubular esophagus was intubated directly under vi sualization without difficulty. The endoscope was ultimately advanced into the 2nd portion of the d uodenum. All mucosal surfaces were examined in their entirety including a retroflexed view of the g astric cardia. FINDINGS: Grade 2 esophageal varices extending from the mid body of the esophagus to the GE junctio n were found. There was stigmata of scarring from previous band ligation. There was a possible ear ly ulceration over 1 column of a varix in the mid body of the esophagus at 30 cm but without active bleeding. The esophageal varices at the GE junction were without any evidence of red katalina or stigm lurdes of recent bleeding, and there was no active bleeding during the procedure. The stomach was normal without evidence of portal hypertensive gastropathy. There were no gastric v arices in the cardia. The antrum and pylorus were normal without stigmata of portal hypertension or evidence of acid peptic injury. The duodenum was normal to the second portion. THERAPEUTIC INTERVENTION: The Olympus endoscope was removed from the patient after the stomach was decompressed. A Place[employer]ak 7-shooter was placed onto the endoscope and the patient was reint ubated with the banding device on the endoscope. A total of 3 bands were deployed across 3 columns of varices. The 1st band was deployed at 35 cm, right near the GE junction and was successfully vis ualized to have been deployed. A 2nd band was placed at 32 cm at the 9 o'clock position on a 2nd co lumn of varix. This band was not so well adhered after endoscopic band ligation due to previous sca rring. The knuckle of tissue was smaller than the initial band that was placed at the GE junction b ut still visibly held over a knuckle of varix. There was some minor oozing from this varix after ba nding, but no ongoing bleeding. A 3rd band was placed close to the 30-32 cm naima near the mid esoph ageal ulcer point, which was overlying a varix. There was also some scarring in this varix but it w as also successfully banded. In total, 3 bands across 3 columns extending from 30-35 cm were placed with the last band most proximal in the esophagus overlying an ulcer which I believe was over an es ophageal varix. There was minimal oozing of blood from the last 2 bands that were placed but they w ere stable and the endoscope was removed from the patient. She tolerated the procedure well. IMPRESSION: 1. Grade 2 esophageal varices extending from the 30 cm naima in the mid esophagus to the GE junction at 35 cm. A total of 3 bands were deployed across 3 columns. There was stigmata of bleeding from the midpoint in the esophagus with an ulceration, I believe, over an esophageal varix. 2. The stomach was normal in its entirety without evidence of portal hypertension or gastric varice s. 3. Normal duodenum to the second portion. RECOMMENDATIONS: 1. Clear liquid diet only. 2. Move to a monitored bed. She had previously been up on and I believe an Intermediate Car e Unit bed would be preferable for her. 3. Telemetry monitoring minimally. 4. Hematocrit q.6 hours. 5. Zofran as needed to prevent nausea. 6. Octreotide 100 mcg bolus and then 50 mcg/hour continuous for 3 days post banding. 7. Avoid all NSAIDs or aspirin. 8. She does not possess ascites on her ultrasound, and so I believe antibiotic prophylaxis for the prevention of SBP is unnecessary. 9. Check INR which has not been performed and correct if her INR is greater than 2 with FFP and vit alexis K. 10. I have discussed the findings with Dr. Rosalinda Ordaz of the hospitalist service, who will move the patient to an intermediate care bed and initiate the medication therapies as described. 11. Protonix 40 mg IV twice daily should be sufficient. I do not believe she needs a continuous Pr otonix infusion. 12. Further recommendations to follow. /[id number]/MODL
[2016-10-28] MEDS: NS 1,000 ML IV SCH (02:19)
[2016-10-28] MEDS: OCTREOTIDE ACETATE 500 MCG in D5W 50 ML IV SCH (05:13)
[2016-10-28 05:39] LABS: % IMMATURE GRANULYOCYTES 0.2 % (0.0-1.1); ABSOLUTE IMMATURE GRANULOCYTES 0.01 10^3/uL (0.00-0.10); ADD DIFF? NO; ADD MORPH? NO; ADD SCAN? NO; ATYPICAL LYMPHOCYTE FLAG 10 (0-99); FRAGMENT RBC FLAG 0 (0-99); HEMATOCRIT 43.4 % (38.0-47.0); HEMOGLOBIN 15.8 g/dL (12.6-16.3); LEFT SHIFT FLG 0 (0-99); LIPEMIA HEMOLYSIS FLAG 90 (0-99); MEAN CELL HEMOGLOBIN 31.5 pg (27.9-34.1); MEAN CELL HEMOGLOBIN CONCENTR. 36.4 g/dL (32.4-36.7); MEAN CELL VOLUME 86.5 fL (81.5-99.8); MEAN PLATELET VOLUME 10.2 fL (8.7-11.7); PLATELET CLUMPS FLAG 10 (0-99); PLATELET COUNT 97 10^3/uL (150-400); RED BLOOD CELL COUNT 5.02 10^6/uL (4.18-5.33); RED CELL DISTRIBUTION WIDTH 11.9 % (11.5-15.2)
[2016-10-28 05:43] LABS: INR 1.17 (0.83-1.16); PROTIME(PATIENT) 14.9 SEC (12.0-15.0)
[2016-10-28 05:56] LABS: ALANINE AMINOTRANSFERASE 71 IU/L (9-52); ALBUMIN 3.9 g/dL (3.5-5.0); ALKALINE PHOSPHATASE 84 IU/L (38-126); ANION GAP 9 mEq/L (8-16); ASPARTATE AMINOTRANSFERASE 69 IU/L (14-46); BILIRUBIN-CONJUGATED 0.5 mg/dL (0.0-0.5); BILIRUBIN-UNCONJUGATED 1.5 mg/dL (0.0-1.1); CALCIUM 8.8 mg/dL (8.5-10.4); CARBON DIOXIDE 24 mEq/l (22-31); CHLORIDE 101 mEq/L (97-110); CREATININE 0.4 mg/dL (0.6-1.0); GLOMERULAR FILTRATION RATE > 60; GLUCOSE 135 mg/dL (70-100); MAGNESIUM 1.6 mg/dL (1.6-2.3); POTASSIUM 3.4 mEq/L (3.5-5.2); SODIUM 134 mEq/L (134-144); TOTAL PROTEIN 6.9 g/dL (6.3-8.2)
[2016-10-28] MEDS ORDERED: POTASSIUM CL 10 MEQ TAB PO ONE ×2 (08:01→18:37)
[2016-10-28] MEDS: PANTOPRAZOLE SODIUM 40 MG in NS 100 ML IV SCH (08:18)
[2016-10-28] MEDS ORDERED: PROTOCOL K PHOSPHATE 1 DOSE IV PRN (08:38)
[2016-10-28] MEDS: MULTIVITAMINS 1 EACH TAB PO SCH (09:18)
[2016-10-28] MEDS: FOLIC ACID 1 MG TAB PO SCH (09:18)
[2016-10-28] MEDS: THIAMINE HCL 500 MG in NS 100 ML IV SCH (10:38)
[2016-10-28] MEDS ORDERED: PHYTONADIONE 2.5 MG/2.5 ML ORAL UDL PO ONE (10:46)
--- NOTE | 2016-10-28 10:49 | SOAPPROG ---
[facility] Progress Note Assessment/Plan: Assessment/Plan: Esophageal varices. Now, no further e/o bleeding. - feed - buffcap IV - d/c octreotide - change PPI to oral prophy'x, while here in the hospital (does not need to be discharged on) - Vit K x 1 - as an outpt, I will arrange repeat EGD with Dr. Alvarado, for further banding, to eradicate her varices. Until they are eradicated, recommend nadolol 40 mg daily (to decrease risk of rebleeding) - no outpt EtOH - recommend keeping in hospital today, to insure no further rebleeding. However , ok to trf floor. If stable tomorrow, as I suspect, ok to d/c home, from a G.I. standpoint. I will sign off; please call if we can be of further help [phone] Thanks! 10/28/16 10:50 Subjective: cc: varices No e/o of bleeding. Hungry. Denies abdominal, chest pain. No rigors. Objective: Vital Signs Temp Pulse Resp BP Pulse Ox 36.6 C 102 H 20 142/73 H 97 10/28/16 08:00 10/28/16 08:00 10/28/16 08:00 10/28/16 08:00 10/28/16 08:00 Laboratory Results 10/28/16 05:20 10/28/16 05:20 10/27/16 10/28/16 10/29/16 05:59 05:59 05:59 Intake Total 3241 Output Total 100 Balance 3141 PT 14.9 SEC (12.0-15.0) 10/28/16 05:20 INR 1.17 (0.83-1.16) H 10/28/16 05:20 Physical Exam - Physical Exam General Appearance: WD/WN, alert, no apparent distress EENT: PERRL/EOMI, normal ENT inspection, pharynx normal, TMs normal Neck: non-tender, full range of motion, supple, normal inspection Respiratory: chest non-tender, lungs clear, normal breath sounds Cardiac/Chest: normal peripheral pulses, regular rate, rhythm Peripheral Pulses: 2+: carotid (R), carotid (L), femoral (R), femoral (L), dorsalis-pedis (R), dorsalis-pedis (L) Abdomen: normal bowel sounds, non-tender, soft Pelvic Exam: deferred Rectal: deferred Back: Normal inspection Skin: normal color, warm/dry Lymphatic: no adenopathy Extremities: normal range of motion, non-tender, normal inspection, normal capillary refill Neuro/Psych: no motor/sensory deficits, alert, normal mood/affect, oriented x 3 ICD10 Worksheet Patient Problems: Problems Problem Status Onset Hypokalemia Acute Vomiting Acute Alcoholic liver failure Acute Dehydration Acute Nausea vomiting and diarrhea Acute Vomiting Acute
[2016-10-28] MEDS ORDERED: K PHOS 10 MMOL in D5W 250 ML IV ONE (12:00)
[2016-10-28] MEDS: NADOLOL 20 MG TAB PO SCH (13:19)
--- NOTE | 2016-10-28 15:17 | HOSPPROG ---
Hospitalist Progress Note Assessment/Plan: * UGIB s/p banding of varicies -DC octreotide per GI -PPI - no need to continue post discharge however -PO Nadolol -repeat EGD as outpatient with Dr. Alvarado * N/V - advance diet -reduce THC * Etoh cirrhosis -complete Etoh cessations recommended * Biliary/pancreatic ductal dilation -check CT a/p * Low TSH - check free T4 Subjective: Still very nauseated, just ate a couple of bites for breakfast Objective: Vital Signs Temp Pulse Resp BP Pulse Ox 36.4 C 97 15 158/78 H 98 10/28/16 12:00 10/28/16 12:00 10/28/16 12:00 10/28/16 12:00 10/28/16 12:00 Laboratory Results 10/28/16 05:20 10/28/16 05:20 10/27/16 10/28/16 10/29/16 05:59 05:59 05:59 Intake Total 3241 Output Total 100 Balance 3141 PT 14.9 SEC (12.0-15.0) 10/28/16 05:20 INR 1.17 (0.83-1.16) H 10/28/16 05:20 d/w Dr. Luevano - ICU rounds - okay for floor today - Physical Exam Constitutional: no apparent distress, appears nourished, not in pain Cardiovascular: regular rate and rhythym, no murmur, rub, or gallop Respiratory: no respiratory distress, no rales or rhonchi, clear to auscultation Gastrointestinal: normoactive bowel sounds, soft, non-tender abdomen, no palpable masses Skin: no rashes or abrasions, no fluctuance, no induration Neurologic: AAOx3, sensation intact bilaterally Psychiatric: interacting appropriately, not anxious, not encephalopathic, thought process linear ICD10 Worksheet Patient Problems: Problems Problem Status Onset Hypokalemia Acute Vomiting Acute Alcoholic liver failure Acute Dehydration Acute Nausea vomiting and diarrhea Acute Vomiting Acute
[2016-10-28] MEDS ORDERED: IOPAMIDOL (ISOVUE-300) 100 ML BTL ONE (15:40)
[2016-10-28 16:38] LABS: HEMATOCRIT 43.1 % (38.0-47.0)
[2016-10-28 18:28] LABS: POTASSIUM 3.8 mEq/L (3.5-5.2)
[2016-10-28] MEDS: hydrALAZINE 10 MG TAB PO PRN (20:52)
[2016-10-29 00:34] LABS: HEMATOCRIT 44.6 % (38.0-47.0); HEMOGLOBIN 16.7 g/dL (12.6-16.3)
[2016-10-29 07:50] LABS: % IMMATURE GRANULYOCYTES 0.3 % (0.0-1.1); ABSOLUTE IMMATURE GRANULOCYTES 0.02 10^3/uL (0.00-0.10); ADD DIFF? NO; ADD MORPH? NO; ADD SCAN? NO; ATYPICAL LYMPHOCYTE FLAG 20 (0-99); FRAGMENT RBC FLAG 10 (0-99); HEMATOCRIT 44.5 % (38.0-47.0); HEMOGLOBIN 16.4 g/dL (12.6-16.3); LEFT SHIFT FLG 0 (0-99); LIPEMIA HEMOLYSIS FLAG 90 (0-99); MEAN CELL HEMOGLOBIN 32.1 pg (27.9-34.1); MEAN CELL HEMOGLOBIN CONCENTR. 36.9 g/dL (32.4-36.7); MEAN CELL VOLUME 87.1 fL (81.5-99.8); MEAN PLATELET VOLUME 10.3 fL (8.7-11.7); PLATELET CLUMPS FLAG 0 (0-99); PLATELET COUNT 140 10^3/uL (150-400); RED BLOOD CELL COUNT 5.11 10^6/uL (4.18-5.33); RED CELL DISTRIBUTION WIDTH 11.9 % (11.5-15.2)
[2016-10-29 08:14] LABS: ANION GAP 11 mEq/L (8-16); CALCIUM 9.1 mg/dL (8.5-10.4); CARBON DIOXIDE 22 mEq/l (22-31); CHLORIDE 97 mEq/L (97-110); CREATININE 0.5 mg/dL (0.6-1.0); GLOMERULAR FILTRATION RATE > 60; GLUCOSE 127 mg/dL (70-100); MAGNESIUM 1.5 mg/dL (1.6-2.3); POTASSIUM 3.4 mEq/L (3.5-5.2); SODIUM 130 mEq/L (134-144)
[2016-10-29] MEDS ORDERED: POTASSIUM CL 10 MEQ TAB PO ONE ×2 (08:35→21:36)
[2016-10-29] MEDS ORDERED: MAGNESIUM SULF 2 GM/WATER 50 ML IV ONE (09:20)
[2016-10-29] MEDS: hydrALAZINE 10 MG TAB PO PRN (10:24)
[2016-10-29] MEDS: FOLIC ACID 1 MG TAB PO SCH (10:59)
[2016-10-29] MEDS: MULTIVITAMINS 1 EACH TAB PO SCH (10:59)
[2016-10-29] MEDS: THIAMINE HCL 100 MG TAB PO SCH (11:01)
[2016-10-29] MEDS: NADOLOL 20 MG TAB PO SCH ×2 (11:01→18:13)
[2016-10-29] MEDS: PANTOPRAZOLE SODIUM 40 MG TAB PO SCH (11:01)
[2016-10-29] MEDS: POTASSIUM Cl (KCl) 100 ML IV SCH ×3 (12:42→14:51)
[2016-10-29] MEDS ORDERED: BISACODYL 10 MG SUPP PR PRN (13:34)
[2016-10-29] MEDS ORDERED: MAGNESIUM HYDROXIDE 30 ML UDCUP PO PRN (13:34)
[2016-10-29] MEDS ORDERED: LACTULOSE 20 GM/30 ML UDCUP PO PRN (13:34)
[2016-10-29] MEDS ORDERED: POLYETHYLENE GLYCOL 3350 17 GM PKT PO PRN (13:34)
[2016-10-29] MEDS: SENNOSIDES/DOCUSATE SODIUM TAB PO SCH ×3 (13:45→22:01)
--- NOTE | 2016-10-29 16:58 | HOSPPROG ---
Hospitalist Progress Note Assessment/Plan: * Persistent N/V -some bile/pancreatic ductal dilation on CT -LFT abnormal but likely due to cirrhosis -check MRCP, consider HIDA -stop THC * UGIB s/p banding of varices -s/p octreotide -PPI - no need to continue post discharge however -PO Nadolol -repeat EGD as outpatient with Dr. Alvarado * Etoh cirrhosis -complete Etoh cessations recommended * Subclinical hyperthyroidism Subjective: Thought she was great and was anxious to go home. Then ate breakfast and promptly vomitted it up. Objective: Vital Signs Temp Pulse Resp BP Pulse Ox 36.7 C 82 17 112/71 95 10/29/16 15:33 10/29/16 15:33 10/29/16 15:33 10/29/16 15:33 10/29/16 15:33 Laboratory Results 10/29/16 04:53 10/29/16 04:53 PT 14.9 SEC (12.0-15.0) 10/28/16 05:20 INR 1.17 (0.83-1.16) H 10/28/16 05:[address] d/w Dr. Couch - head CT negative - Physical Exam Constitutional: no apparent distress, appears nourished, not in pain Cardiovascular: regular rate and rhythym, no murmur, rub, or gallop Respiratory: no respiratory distress, no rales or rhonchi, clear to auscultation Gastrointestinal: normoactive bowel sounds, soft, non-tender abdomen, no palpable masses Skin: no rashes or abrasions, no fluctuance, no induration Neurologic: AAOx3, sensation intact bilaterally Psychiatric: interacting appropriately, not anxious, not encephalopathic, thought process linear ICD10 Worksheet Patient Problems: Problems Problem Status Onset Hypokalemia Acute Vomiting Acute Alcoholic liver failure Acute Dehydration Acute Nausea vomiting and diarrhea Acute Vomiting Acute
[2016-10-29 18:57] LABS: POTASSIUM 3.7 mEq/L (3.5-5.2)
[2016-10-30 05:28] LABS: % IMMATURE GRANULYOCYTES 0.3 % (0.0-1.1); ABSOLUTE IMMATURE GRANULOCYTES 0.03 10^3/uL (0.00-0.10); ADD DIFF? NO; ADD MORPH? NO; ADD SCAN? NO; ATYPICAL LYMPHOCYTE FLAG 50 (0-99); FRAGMENT RBC FLAG 0 (0-99); HEMATOCRIT 47.1 % (38.0-47.0); HEMOGLOBIN 16.8 g/dL (12.6-16.3); LEFT SHIFT FLG 0 (0-99); LIPEMIA HEMOLYSIS FLAG 90 (0-99); MEAN CELL HEMOGLOBIN CONCENTR. 35.7 g/dL (32.4-36.7); MEAN CELL VOLUME 89.7 fL (81.5-99.8); MEAN PLATELET VOLUME 10.6 fL (8.7-11.7); PLATELET CLUMPS FLAG 0 (0-99); PLATELET COUNT 148 10^3/uL (150-400); RED BLOOD CELL COUNT 5.25 10^6/uL (4.18-5.33); RED CELL DISTRIBUTION WIDTH 12.2 % (11.5-15.2)
[2016-10-30 05:53] LABS: ALANINE AMINOTRANSFERASE 57 IU/L (9-52); ALBUMIN 3.8 g/dL (3.5-5.0); ALKALINE PHOSPHATASE 81 IU/L (38-126); ANION GAP 10 mEq/L (8-16); ASPARTATE AMINOTRANSFERASE 47 IU/L (14-46); BILIRUBIN,TOTAL 1.6 mg/dL (0.1-1.4); BILIRUBIN-CONJUGATED 0.5 mg/dL (0.0-0.5); BILIRUBIN-UNCONJUGATED 1.1 mg/dL (0.0-1.1); CARBON DIOXIDE 22 mEq/l (22-31); CHLORIDE 100 mEq/L (97-110); CREATININE 0.6 mg/dL (0.6-1.0); GLOMERULAR FILTRATION RATE > 60; GLUCOSE 108 mg/dL (70-100); MAGNESIUM 2.1 mg/dL (1.6-2.3); POTASSIUM 3.7 mEq/L (3.5-5.2); SODIUM 132 mEq/L (134-144); TOTAL PROTEIN 6.6 g/dL (6.3-8.2)
[2016-10-30 08:10] VITALS: PULSE 83; RESP 14; TEMP 97.6; O2SAT 96
[2016-10-30] MEDS: FOLIC ACID 1 MG TAB PO SCH (08:43)
[2016-10-30] MEDS: PANTOPRAZOLE SODIUM 40 MG TAB PO SCH (08:43)
[2016-10-30] MEDS: MULTIVITAMINS 1 EACH TAB PO SCH (08:43)
[2016-10-30] MEDS: THIAMINE HCL 100 MG TAB PO SCH (08:43)
[2016-10-30] MEDS: NADOLOL 20 MG TAB PO SCH (08:43)
[2016-10-30 09:35] VITALS: BP 118/72
[2016-10-30] MEDS: SENNOSIDES/DOCUSATE SODIUM TAB PO SCH (10:19)
--- NOTE | 2016-10-30 10:20 | SOAPPROG ---
SOAP Progress Note Assessment/Plan: Assessment/Plan: Nausea, yesterday. Now, eating a bit less, with softer food, doing well. Doubt choledocholithiasis; I reviewed his MRCP, and cbd only mildly dilated, without stones, and with a normal-appearing smooth taper distally (does not look like a stricture). LFTs at her baseline, and more c/w known cirrhosis. In the same token, although atypical biliary colic from cholelithiasis is possible, overall doubt, and has no pain. Rather, may have been multifactorial: a) high blood pressure b) chronic history of a "sensitive stomach" (i.e., functional dyspepsia, a variant of IBS) c) some contribution of her recent esophageal bands (felt as if food "stopped " in her mid-chest d) ? CT head findings significant Regardless, now doing well. Recommend: - go slower with advancing diet to her usual -- softer foods, slightly less amount, eat slower, etc. - tx of HTN, if needed, as per hospitalist (as well as any future w/u of head CT findings, if any) - if future episodes of recurrent, significant nausea, despite the above, would then recommend HIDA scan, in case of atypical cholecystitis I will sign off; please call if we can be of further help [phone]). Thanks! 10/30/16 10:23 Subjective: cc: nausea Long episode of the above yesterday (when B/P as high as 196/). Then, was eating "alot". [place] as if food "hung up" in mid-chest. Now, with less food, and softer, doing well. No hematemesis, rigors, chills. Long h/o of a "sensitive stomach." Objective: Vital Signs Temp Pulse Resp BP Pulse Ox 36.4 C 83 14 118/72 96 10/30/16 08:00 10/30/16 08:00 10/30/16 08:00 10/30/16 09:31 10/30/16 08:00 Laboratory Results 10/30/16 05:19 10/30/16 05:19 PT 14.9 SEC (12.0-15.0) 10/28/16 05:20 INR 1.17 (0.83-1.16) H 10/28/16 05:20 MRCP with 12 mm cbd; else, appears unremarkable (reviewed with Dr. Hammond). No evidence of significantly dilated pancreatic duct. US gallstones CT head with some atypical bilateral white matter hypodensities. Physical Exam - Physical Exam General Appearance: WD/WN, alert, no apparent distress EENT: PERRL/EOMI, normal ENT inspection, pharynx normal, TMs normal Neck: non-tender, full range of motion, supple, normal inspection Respiratory: chest non-tender, lungs clear, normal breath sounds Cardiac/Chest: normal peripheral pulses, regular rate, rhythm Peripheral Pulses: 2+: carotid (R), carotid (L), femoral (R), femoral (L), dorsalis-pedis (R), dorsalis-pedis (L) Abdomen: normal bowel sounds, non-tender, soft Pelvic Exam: deferred Rectal: deferred Back: Normal inspection Skin: normal color, warm/dry Lymphatic: no adenopathy Extremities: normal range of motion, non-tender, normal inspection, normal capillary refill Neuro/Psych: no motor/sensory deficits, alert, normal mood/affect, oriented x 3 ICD10 Worksheet Patient Problems: Problems Problem Status Onset Hypokalemia Acute Vomiting Acute Alcoholic liver failure Acute Dehydration Acute Nausea vomiting and diarrhea Acute Vomiting Acute
[2016-10-30] MEDS ORDERED: POTASSIUM CL 10 MEQ TAB PO ONE (11:39)
--- NOTE | 2016-10-30 21:33 | GDS ---
[f rep st] DISCHARGE SUMMARY DISCHARGE DIAGNOSES: 1. Improved persistent nausea and vomiting. Unclear etiology. Possibly thought to be due to funct ional dyspepsia or a variant of IBS. 2. Upper gastrointestinal bleed, status post banding of varices. 3. Alcohol cirrhosis. 4. Subclinical hyperthyroidism. 5. Hypertension. 6. Head CT showing atypical bilateral white matter hypodensities. CONSULTANTS: Dr. Chao Abbott, [facility]. HOSPITAL COURSE AND STAY: 1. Upper GI bleed, with grade 2 esophageal varices, status post banding: The patient presented to the hospital where she was seen by Dr. Alvarado from [facility], who performed EGD with esophage al band ligation on 10/27/2016. She was treated with IV Protonix and octreotide. She did not recei ve any blood transfusions during this hospital stay. Post procedure, the patient has had some inter mittent nausea and vomiting. On day of discharge, she is tolerating a regular diet, and is agreeabl e for discharge home. 2. Elevated blood pressure: Patient does not have a history of hypertension. She was noted to hav e elevated blood pressures at times when she was nauseous. During this hospital stay, she was start ed on nadolol, which will be continued. She will need further outpatient monitoring with her primar care provider. If she continues to have episodic hypertension, it would be reasonable to pursue a workup for pheochromocytoma. 3. Atypical bilateral white matter hypodensities seen on head CT: Head CT was ordered, due to hist ory of high blood pressures, lightheadedness, and nausea and vomiting. The CT did show atypical aura ateral white matter hyperdensities that were not described on MRI done in April of 2010. The pat ient should be considered for further outpatient imaging if she has any signs or symptoms of a centr al nervous system pathology with a followup MRI. PHYSICAL EXAM: VITAL SIGNS: On day of discharge, blood pressure 118/72, pulse of 83, respiratory r ate 14, O2 saturation 96% on room air, temperature afebrile. GENERAL: No acute distress. HEART: S1, S2. LUNGS: Clear. ABDOMEN: Soft. EXTREMITIES: No edema. LABS AND STUDIES: Pertinent labs and studies done this hospital stay: EGD with esophageal variceal banding on 10/27/2016. MRI of the abdomen done 10/29/2016, refer to re port. Abdominal CT done 10/28/2016, refer to report. DISCHARGE MEDICATIONS: Please refer to discharge medication reconciliation in [facility]. DISCHARGE INSTRUCTIONS: The patient will be discharged from the hospital where she should follow up with her doctor at [facility] later on this week. She should also follow up with Dr. Abbott as directed. Once again, if she continues to have episodic hypertension, it would be reas onable for her to pursue a workup for pheochromocytoma. /[id number]/MODL
== END 2016-10-30 12:27 | disposition home or self-care (01) | DRG 432 ==
LOC: F3E 14:33 → F2N 17:31 → OBSVTOIN 10-28 15:12 → F3E 10-28 16:38
PROVIDERS: ADMIT Internal Medicine; ATTEND Family Medicine
PROC: 06L34CZ Occlusion of Esophageal Vein with Extraluminal Device, Percutaneous Endoscopic Approach (ICD-10-PCS; principal; 2016-10-27 15:50)
DX: K70.30 Alcoholic cirrhosis of liver without ascites (principal); I85.11 Secondary esophageal varices with bleeding; E87.6 Hypokalemia; I10 Essential (primary) hypertension; G93.9 Disorder of brain, unspecified; F10.20 Alcohol dependence, uncomplicated; F12.20 Cannabis dependence, uncomplicated
CPT/HCPCS: 96374; 97161-GP; G0378; G8978-GP-CH; G8979-GP-CH; G8980-GP-CH; J2060; J2250; J2353; J2354; J2405; J2704; J2765; J3010; J3411; Q9967

== ENCOUNTER → 2017-10-11 | Outpatient (CLI) | payer OTHER ==
[~2017-10-11] MED LIST: IOPAMIDOL (ISOVUE-300) 100 ML BTL ONE
== END ==
LOC: FIMAGING 15:01
PROVIDERS: ATTEND Internal Medicine
DX: K74.60 Unspecified cirrhosis of liver (principal); I85.10 Secondary esophageal varices without bleeding; K80.20 Calculus of gallbladder without cholecystitis without obstruction; K83.8 Other specified diseases of biliary tract; N28.1 Cyst of kidney, acquired; Z96.641 Presence of right artificial hip joint
CPT/HCPCS: 74177; Q9967

== ENCOUNTER 2018-04-03 11:13 | Inpatient (IN) | payer OTHER ==
[2018-04-03] MEDS ORDERED: ONDANSETRON 4 MG/2 ML VIAL IVP ONE (11:29)
[2018-04-03] MEDS ORDERED: NS 1,000 ML IV ONE ×2 (11:29→14:42)
[2018-04-03] MEDS ORDERED: LORazepam 2 MG/ML INJ IVP ONE (11:51)
--- NOTE | 2018-04-03 11:53 | EDPHY ---
H & P Stated Complaint: nausea vomiting herbert last night Time Seen by Provider: 04/03/18 11:29 HPI/ROS: CHIEF COMPLAINT: Vomiting HISTORY OF PRESENT ILLNESS: The patient has a history of chronic nausea. She presents to the ED with 1 day of intractable vomiting not alleviated with lorazepam. The patient reports that she typically uses lorazepam approximately 8 times a month. She has been having an increased gag reflex since being fitted with a new pair dentures. The patient denies any significant abdominal pain. She denies fever or diarrhea. She denies any recent abdominal surgery. She did recently have dental work to prepare for her denture. The patient denies any hematemesis or melena. She denies additional acute complaints. REVIEW OF SYSTEMS: A comprehensive 10 point review of systems is otherwise negative aside from elements mentioned in the history of present illness. Source: Patient Exam Limitations: No limitations - Personal History Current Tetanus Diphtheria and Acellular Pertussis (TDAP): Yes Tetanus Vaccine Date: <10 years - Medical/Surgical History Hx Asthma: No Hx Chronic Respiratory Disease: No Hx Diabetes: No Hx Cardiac Disease: No Hx Renal Disease: No Hx Cirrhosis: Yes Hx Alcoholism: Yes Hx HIV/AIDS: No Hx Splenectomy or Spleen Trauma: No Other PMH: Alcoholism, liver disease, anemia, gi bleed, esophageal varacies, falls related to alcohol, hip fracture, paracentesis procedure, osteoporosis - Social History Smoking Status: Never smoked - Physical Exam Exam: General Appearance: Anxious Eyes: Pupils equal and round no pallor or injection ENT, Mouth: Postsurgical changes noted in the mouth without evidence of bleeding Respiratory: There are no retractions, lungs are clear to auscultation Cardiovascular: Regular rate and rhythm Gastrointestinal: Abdomen is soft and nontender, no masses, bowel sounds normal Neurological: 5/5 strength all 4 extremities Skin: Warm and dry, no rashes Musculoskeletal: Neck is supple nontender Extremities: symmetrical, full range of motion Psychiatric: Patient is oriented X 3, there is no agitation Constitutional: Initial Vital Signs Temperature (C) 36.8 C 04/03/18 11:16 Heart Rate 134 H 04/03/18 11:16 Respiratory Rate 16 04/03/18 11:16 Blood Pressure 187/109 H 04/03/18 11:16 O2 Sat (%) 98 04/03/18 11:16 O2 Delivery Mode Room Air Allergies/Adverse Reactions: No Known Allergies Allergy (Verified 07/16/16 14:26) Home Medications: Medication Instructions Recorded LORazepam 04/03/18 Medical Decision Making ED Course/Re-evaluation: Patient presents to the ED with vomiting and symptoms of anxiety. She has no complaints of abdominal pain. She does have a history of chronic liver disease. The patient had an IV established. She received a L of normal saline. She received 4 mg of IV Zofran. She received 1 mg of IV Ativan. Laboratory studies do demonstrate chronic abnormalities of her liver function test. The patient has no evidence of acute pancreatitis. I re-evaluated the patient at 2:00 p.m. And she is feeling better. She was given a p.o. Challenge. She again developed recurrent nausea. Her heart rate is in the 130's. Does report she has been cutting back her alcohol. I do feel the patient should be admitted to the hospital in a setting of her tachycardia and vomiting. She does have an a benign abdominal examination. There certainly could be an element of alcohol withdrawal contributing to her symptoms today. Consultation is made with Dr. Farr from the hospitalist service who will admit the patient. Differential Diagnosis: Differential diagnosis considered includes benzodiazepine withdrawal, alcohol withdrawal, dehydration, metabolic abnormality, renal failure, pancreatitis - Data Points Laboratory Results: Laboratory Results 04/03/18 11:33 04/03/18 11:33 Sodium 139 mEq/L mEq/L (135-145) Potassium 3.8 mEq/L mEq/L (3.3-5.0) Chloride 98 mEq/L mEq/L (97-110) Carbon Dioxide 13 mEq/l L mEq/l (22-31) Anion Gap 28 mEq/L H mEq/L (6-14) BUN 11 mg/dL mg/dL (7-23) Creatinine 0.6 mg/dL mg/dL (0.6-1.0) Estimated GFR > 60 Glucose 274 mg/dL H mg/dL (70-100) Calcium 10.7 mg/dL H mg/dL (8.5-10.4) Phosphorus 4.7 mg/dL H mg/dL (2.5-4.5) Total Bilirubin 2.0 mg/dL H mg/dL (0.1-1.4) Conjugated Bilirubin 0.6 mg/dL H mg/dL (0.0-0.5) Unconjugated Bilirubin 1.4 mg/dL H mg/dL (0.0-1.1) AST 42 IU/L IU/L (14-46) ALT 22 IU/L IU/L (9-52) Alkaline Phosphatase 124 IU/L IU/L (38-126) Total Protein 9.5 g/dL H g/dL (6.3-8.2) Albumin 5.5 g/dL H g/dL (3.5-5.0) Lipase 43 IU/L IU/L (23-300) Medications Given: Discontinued Medications Sodium Chloride (Ns) 1,000 mls @ 0 mls/hr IV ONCE ONE PRN Reason: Wide Open Stop: 04/03/18 11:30 Last Admin: 04/03/18 11:34 Dose: 1,000 mls Lorazepam (Ativan Injection) 1 mg IVP EDNOW ONE Stop: 04/03/18 11:52 Last Admin: 04/03/18 12:01 Dose: 1 mg Ondansetron HCl (Zofran) 4 mg IVP EDNOW ONE Stop: 04/03/18 11:30 Last Admin: 04/03/18 11:35 Dose: 4 mg Departure - Departure Disposition: [facility] Inpatient Acute Clinical Impression: Vomiting Condition: Good Instructions: Acute Nausea and Vomiting (ED) Referrals: Naif Salinas MD [Primary Care Provider] - As per Instructions
[2018-04-03] MEDS ORDERED: ONDANSETRON DISINTEGRATING 4 MG TAB PO PRN (15:28)
[2018-04-03] MEDS ORDERED: ACETAMINOPHEN 325 MG TAB PO PRN (15:28)
[2018-04-03] MEDS ORDERED: D5W LR 1,000 ML IV SCH (15:30)
[2018-04-03] MEDS ORDERED: amLODIPine BESYLATE 5 MG TAB PO SCH (15:30)
[2018-04-03] MEDS: amLODIPine BESYLATE 5 MG TAB PO SCH (15:34)
--- NOTE | 2018-04-03 16:07 | GHP ---
DATE OF ADMISSION: 04/03/2018 CHIEF COMPLAINT: Nausea and vomiting. HISTORY OF PRESENT ILLNESS: This is a 67-year-old female who presents with intractable vomiting over the last 24 hours. Recent history notable for having her teeth extracted 2 weeks ago in anticipatio n of getting implants. She was initially fitted with dentures. The last 2 weeks, have seen signific antly decreased p.o. intake given the oral procedure. About 24 hours ago, she began vomiting, which was not bloody. She tells me she vomited about 24 times in the last 24 hours. This was triggered an y time she tried to eat or drink anything. She is feeling very weak. She has not had any melena. S he has a long history of problems with vomiting dating back to her childhood. She is currently on At juhi per her PCP, which helps to treat this. She was admitted about 2 years ago for the same, diagno sed with IBS versus dyspepsia at the time. She also has a history of long-term alcohol use with alco holic cirrhosis. She had varices banded also about 2 years ago on the same hospitalization. She has not followed up with GI since then. She tells me that she has significantly decreased her alcohol u se. Her last drink was last Sunday when some girlfriends came over to watch TV. She tells me she started cutting down about 6 months ago. PAST MEDICAL/SURGICAL HISTORY: 1. Alcoholic cirrhosis. 2. Esophageal varices. 3. Ascites. 4. Recent dental procedure. 5. Tonsillectomy. MEDICATIONS: Please see medication reconciliation. ALLERGIES: No known drug allergies. SOCIAL HISTORY: She drinks as above. She does not smoke tobacco, but she does smoke marijuana. FAMILY HISTORY: Reviewed and noncontributory. REVIEW OF SYSTEMS: A 10-point review of systems is conducted and is negative, except per HPI. PHYSICAL EXAM: VITAL SIGNS: Blood pressure 186/105, heart rate 122, respiration rate 18, saturating 98% on room air. Temperature is 37. GENERAL: The patient is a very pleasant female who appears so mewhat anxious. HEENT: Shows her to have had recent tooth extraction with no significant erythema i n her mouth. CARDIOVASCULAR: Exam shows her to be tachycardic. There are no murmurs, rubs, or gall ops. PULMONARY: Exam from the anterior shows her lungs to be clear to auscultation bilaterally. AB DOMEN: Exam is soft, nontender. She has a non-peritoneal exam. SKIN: Exam shows no rash. : Lina ballard shows no Carty. NEUROLOGIC: Exam shows her to be alert and oriented x3. She is moving all extremi ties. PSYCHIATRIC: Exam shows her to be anxious. LABS: White count is 10.5. Hemoglobin is 18. Bicarb is 13. Anion gap is 28. Glucose is 274. Calc ium is 10.7. Her total bilirubin is 2.0, 1.4; that is unconjugated. AST, ALT are normal. Alkaline phosphatase is normal. Total protein is 9.5, and albumin is 5.5. DATA: 1. I discussed this with Dr. London. Will admit her to Med/Surg under observation status. 2. I reviewed her chart, including her last admission where she underwent variceal banding and was t reated for intractable nausea and vomiting. IMPRESSION/PLAN: 1. Severe dehydration: This is due to her nausea/vomiting in the setting of 2 weeks of decreased p. o. intake. She has a significantly low bicarb and evidence of hemoconcentration. She is also tachyc ardic. Will treat her with aggressive IV hydration overnight. 2. Nausea/vomiting: This has been, fortunately, non-bloody. She has a long-term history of this. Will not pursue further diagnostics at this time. We will treat her supportively with IV fluids, ant iemetics, and a clear liquid diet. If she does not improve, consider additional workup. 3. Tachycardia: I think this is most likely due to the dehydration, although need to consider alcoh ol withdrawal. I think it is reasonable to treat her dehydration for now and follow. I have not jonathan casey her on CIWA at this time. However, if she begins to show additional signs of alcohol withdrawal, she will need symptom-triggered benzodiazepines. 4. Alcohol abuse: As above per tachycardia. Monitor for now. 5. Alcoholic cirrhosis with esophageal varices, which were banded, as well as ascites: It does not sound like she ever received surveillance endoscopy; she needs this. Would recommend that she follow up with GI as an outpatient. She does not have any evidence of a variceal bleed at this time as she has no ascites on exam. 6. Hypertension: Suspect that she has underlying essential hypertension and is currently quite anxi ous, which is exacerbating this. I have given her a low dose of amlodipine, follow closely. 7. Venous thromboembolism risk: She is moderate to high, would start her on prophylaxis if she conv erts to inpatient and has no evidence of bleeding. /[id number]/MODL
[2018-04-03] MEDS: LR 1,000 ML IV SCH (16:44)
[2018-04-03] MEDS: ONDANSETRON 4 MG/2 ML VIAL IVP PRN (17:01)
[2018-04-03 17:15] LABS: PLATELET COUNT 163 10^3/uL (150-400)
[2018-04-03] MEDS ORDERED: PROMETHAZINE HCL 25 MG/ML INJ IVP PRN (17:41)
[2018-04-03] MEDS: PROMETHAZINE HCL 25 MG/ML INJ IVP PRN (18:08)
[2018-04-03] MEDS: LORazepam 2 MG/ML INJ IVP PRN (20:36)
[2018-04-03] MEDS: CALCIUM CARBONATE 500 MG CHEWABLE TAB PO PRN (20:36)
[2018-04-03] MEDS ORDERED: LORazepam 0.5 MG TAB PO PRN (23:02)
[2018-04-03] MEDS ORDERED: oxyCODONE IR 5 MG TAB PO PRN (23:22)
[2018-04-04] MEDS: LR 1,000 ML IV SCH ×3 (00:13→17:03)
[2018-04-04] MEDS: LORazepam 2 MG/ML INJ IVP PRN ×4 (00:43→21:16)
[2018-04-04 05:31] LABS: PLATELET COUNT 171 10^3/uL (150-400)
[2018-04-04 05:40] LABS: INR 1.13 (0.83-1.16); PROTIME(PATIENT) 14.7 SEC (12.0-15.0)
[2018-04-04] MEDS ORDERED: POTASSIUM CL 20 MEQ/15 ML UDCUP PO ONE (07:43)
[2018-04-04] MEDS: amLODIPine BESYLATE 5 MG TAB PO SCH ×2 (09:47→09:53)
--- NOTE | 2018-04-04 13:11 | ASMTCMCOM ---
CM Note CM Note Notes: Pt is a 67 y/o female who presented to the ED with intractable vomiting. She has a hx of nausea extending back to childhood. Over the last 2 weeks her gag reflex has increased following the removal of 2 teeth in anticipation of implants. She has a hx of alcoholism, liver disease, anemia, falls related to alcohol and osteoporosis. She reports that she has significantly cut down on her drinking over the past 6 months. Pt lives indepedently and no CM needs have been identified. Resources on alcohol treatment will be offered to her. CM will follow for changes. D/C Planning: Anticipate independent. Date Signed: 04/04/2018 01:10 PM Electronically Signed By:She Mathew
--- NOTE | 2018-04-04 16:39 | HOSPPROG ---
Hospitalist Progress Note Assessment/Plan: 67y female with c/o n/v. First encounter, chart reviewed. #N/V -no emesis since last evening -still nausea -tolerating some liquids #Dehydration -cont ivf #Tachy -better -IVF -follow #ETOH cirrohsis -stable #HTN -stable #Dispo -pt still dehydrated -unable to tolerate food -change to inpt status -requires further treatment in hospital Subjective: Feeling nauseous. No pain. Not eating. Objective: Vital Signs Temp Pulse Resp BP Pulse Ox 36.9 C 93 16 139/75 H 93 04/04/18 15:34 04/04/18 15:34 04/04/18 15:34 04/04/18 15:34 04/04/18 15:34 Laboratory Results 04/04/18 04:20 04/04/18 04:24 04/03/18 04/04/18 04/05/18 05:59 05:59 05:59 Intake Total 2300 Output Total 450 Balance 1850 PT 14.7 SEC (12.0-15.0) 04/04/18 04:20 INR 1.13 (0.83-1.16) 04/04/18 04:20 - Physical Exam Constitutional: appears nourished, not in pain, chronically ill appearing Eyes: PERRL, anicteric sclera, EOMI Ears, Nose, Mouth, Throat: moist mucous membranes, hearing normal, ears appear normal Cardiovascular: No JVD, No tachycardia, No edema Respiratory: no respiratory distress, no rales or rhonchi, reduced air movement Gastrointestinal: normoactive bowel sounds, No tenderness, No ascites Skin: warm, normal color, No mottled Musculoskeletal: normal joint ROM, no joint effusions, generalized weakness Neurologic: AAOx3 Psychiatric: interacting appropriately, not anxious, not encephalopathic, thought process linear ICD10 Worksheet Patient Problems: Problems Problem Status Onset Nausea vomiting and diarrhea Acute Vomiting Acute Dehydration Acute Alcoholic liver failure Acute Vomiting Acute Hypokalemia Acute
[2018-04-04] MEDS: ONDANSETRON 4 MG/2 ML VIAL IVP PRN (18:12)
[2018-04-04] MEDS: PROMETHAZINE HCL 25 MG/ML INJ IVP PRN (18:12)
[2018-04-04] MEDS: CALCIUM CARBONATE 500 MG CHEWABLE TAB PO PRN (21:19)
--- NOTE | 2018-04-04 22:40 | PDMN ---
Medical Necessity Medical necessity: Pt meets INPT criteria per MD as of 04/04/18 and [facility] Dehydration (LOS >2 MN for ongoing eval/mgmt of dehydration, nausea, inability to tolerate food, tachycardia; requiring IVF; hx cirrhosis).
[2018-04-05] MEDS: amLODIPine BESYLATE 5 MG TAB PO SCH (08:03)
[2018-04-05] MEDS: ONDANSETRON 4 MG/2 ML VIAL IVP PRN ×2 (09:56→14:48)
[2018-04-05] MEDS: ENOXAPARIN 40 MG/0.4 ML SYR SC SCH (09:58)
[2018-04-05] MEDS: PROMETHAZINE HCL 25 MG/ML INJ IVP PRN (10:18)
[2018-04-05] MEDS: LORazepam 2 MG/ML INJ IVP PRN ×2 (12:12→22:05)
--- NOTE | 2018-04-05 13:05 | HOSPPROG ---
Hospitalist Progress Note Assessment/Plan: 67y female with c/o n/v. #N/V -possibly related to UTI -still nausea/vomitting -tolerating some liquids #UTI -urine cx pending -start CTX -await cx results #Dehydration -cont ivf #Tachy -better -IVF -follow #ETOH cirrohsis -stable #HTN -stable #Dispo -pt still dehydrated -unable to tolerate food -change to inpt status -requires further treatment in hospital -await urine cx Subjective: Still not feeling well. Complaining of blood in urine. Objective: Vital Signs Temp Pulse Resp BP Pulse Ox 37.1 C 102 H 16 180/86 H 96 04/05/18 12:00 04/05/18 12:00 04/05/18 12:00 04/05/18 12:00 04/05/18 12:00 04/04/18 04/05/18 04/06/18 05:59 05:59 05:59 Intake Total 1500 Output Total 500 Balance 1000 PT 14.7 SEC (12.0-15.0) 04/04/18 04:20 INR 1.13 (0.83-1.16) 04/04/18 04:20 - Physical Exam Constitutional: appears nourished, chronically ill appearing, uncomfortable Eyes: PERRL, anicteric sclera, EOMI Ears, Nose, Mouth, Throat: moist mucous membranes, hearing normal, ears appear normal Cardiovascular: regular rate and rhythym, tachycardia, No JVD, No edema Respiratory: no respiratory distress, no rales or rhonchi, reduced air movement Gastrointestinal: normoactive bowel sounds, No tenderness, No ascites Skin: warm, No normal color, No mottled Musculoskeletal: normal joint ROM, no joint effusions, generalized weakness Psychiatric: not anxious, not encephalopathic, poor memory ICD10 Worksheet Patient Problems: Problems Problem Status Onset Nausea vomiting and diarrhea Acute Vomiting Acute Dehydration Acute Alcoholic liver failure Acute Vomiting Acute Hypokalemia Acute
[2018-04-05] MEDS: LR 1,000 ML IV SCH (14:42)
[2018-04-05] MEDS ORDERED: PANTOPRAZOLE SODIUM 40 MG VIAL IVP ONE (15:15)
--- NOTE | 2018-04-05 16:21 | ASMTCMCOM ---
CM Note CM Note Notes: Pt still requiring treatment. She may have a UTI. CM will follow. D/C Plan: Independent Date Signed: 04/05/2018 04:20 PM Electronically Signed By:She Mathew
[2018-04-05] MEDS ORDERED: PROTOCOL POTASSIUM 1 DOSE MISC PRN (20:05)
[2018-04-05] MEDS ORDERED: PANTOPRAZOLE SODIUM 40 MG VIAL IVP PRN (20:06)
[2018-04-05] MEDS: D5W NS W/ 20 KCl/L 1,000 ML IV SCH (22:05)
[2018-04-06] MEDS ORDERED: PROTOCOL MAGNESIUM 1 DOSE IV PRN (07:57)
[2018-04-06] MEDS: D5W NS W/ 20 KCl/L 1,000 ML IV SCH (08:33)
[2018-04-06] MEDS: ENOXAPARIN 40 MG/0.4 ML SYR SC SCH ×2 (08:42→08:54)
[2018-04-06] MEDS: amLODIPine BESYLATE 5 MG TAB PO SCH (08:42)
[2018-04-06] MEDS ORDERED: MAGNESIUM SULF 1 GM/DEXTROSE 100 ML IV ONE (08:59)
[2018-04-06] MEDS: POTASSIUM Cl (KCl) 100 ML IV SCH ×3 (09:43→12:45)
[2018-04-06] MEDS ORDERED: POTASSIUM CL 10 MEQ TAB PO ONE (12:30)
[2018-04-06 15:17] VITALS: BP 161/87
--- NOTE | 2018-04-06 16:06 | PDDCSUM ---
Discharge Summary Discharge Summary: DAtes of service: 04/03-04/06/18 Consultations:none Procedures: none Hospital course by problem: 67y female with hx of etoh cirrhosis presenting c/o n/v. #N/V: recurrent issue for this patient with issues since she was a child related to this, cyclic vomiting versus related to her etoh abuse. AT this time it has resolved, she is tolerating po and wants to go home # hypokalemia: in the setting of above, improved with repletion and now that she is tolerating diet, will dc with short course of po K # pyuria/hematuria: with equal blood and wbc in UA and urine culture not c/w with infection with low colony counts of 2 different bacteria, has received 2 days of ctx but all in all this does not sound c/w infection and will not continue abx # volume depletion: in setting of n/v and poor po intake, s/p IVF # etoh use disorder, severe: sounds as if this is a continued issue, likely underlying her presentation, not interested in hearing about treatment options # etoh cirrhosis: with complications of varices, needs GI f/u # dc home f/u with PCP > 35 min spent in dc of patient more than half in coordination of care
--- NOTE | 2018-04-06 16:52 | ASMTLACE ---
ABHI Length of stay for Answers: 2 days current admission Acuity / Level of Answers: Yes Care: Did the patient have an inpatient admission? Comorbidities - select Answers: History of falls all that apply Moderate or severe liver or renal disease # of Emergency department Answers: 1-2 visits in the last 6 months Social determinants Answers: History of substance abuse (ETOH, street drugs, prescription drugs, etc.) Score: 16 Date Signed: 04/06/2018 04:51 PM Electronically Signed By:ARNULFO Hughes
--- NOTE | 2018-04-06 16:57 | ASDISCHSUM ---
Discharge Information Plan Status:Home with No Needs Medically Cleared to Leave:04/06/2018 Discharge Date:04/06/2018 CM D/C Disposition:Home, Routine, Self-Care ADT D/C Disposition:Home, Routine, Self-Care Projected Discharge Date:04/06/2018 Transportation at D/C:Family Discharge Delay Reason: Follow-Up Date:04/06/2018 Discharge Slot: Final Diagnosis: Placement Information Patient Contact Information Contact Name:KARINA JUNIOR Relationship:Daughter Address:[address] City:[facility] Phone: [facility]/Zip Code:[place] [address] Email: Financial Information Financial Class:Medicare Primary Plan Desc:MEDICARE INPATIENT Primary Plan Number:[id number] Secondary Plan Desc: Secondary Plan Number: Assessment Information LACE LACE Length of stay for Answers: 2 days current admission Acuity / Level of Answers: Yes Care: Did the patient have an inpatient admission? Comorbidities - select Answers: History of falls all that apply Moderate or severe liver or renal disease # of Emergency department Answers: 1-2 visits in the last 6 months Social determinants Answers: History of substance abuse (ETOH, street drugs, prescription drugs, etc.) Score: 16 Date Signed: 04/06/2018 04:51 PM Electronically Signed By:ARNULFO Hughes [facility] Progress Note CM Note CM Note Notes: Pt is a 67 y/o female who presented to the ED with intractable vomiting. She has a hx of nausea extending back to childhood. Over the last 2 weeks her gag reflex has increased following the removal of 2 teeth in anticipation of implants. She has a hx of alcoholism, liver disease, anemia, falls related to alcohol and osteoporosis. She reports that she has significantly cut down on her drinking over the past 6 months. Pt lives indepedently and no CM needs have been identified. Resources on alcohol treatment will be offered to her. CM will follow for changes. D/C Planning: Anticipate independent. Date Signed: 04/04/2018 01:10 PM Electronically Signed By:She Mathew [facility] CM Progress Note CM Note CM Note Notes: Pt still requiring treatment. She may have a UTI. CM will follow. D/C Plan: Independent Date Signed: 04/05/2018 04:20 PM Electronically Signed By:She Mathew Case Management Discharge Plan Note Case Management Discharge Discharge Order Complete? Answers: Yes Patient to Obtain Answers: Independently Medications Transportation Arranged Answers: Family/Friends Discharge Comments Notes: Pt is discharging home today with no CM needs. She has family local to assist. Date Signed: 04/06/2018 04:56 PM Electronically Signed By:ARNULFO Hughes Intervention Information Intervention Type:*CYDNEY-Signed Date of Service:04/04/2018 11:07 AM Patient Type:Observation Staff Member:Daylin Hudson Hours: Discipline: Severity: Comment:
== END 2018-04-06 18:05 | disposition home or self-care (01) | DRG 392 ==
LOC: F3E 15:37 → OBSVTOIN 04-04 16:40
PROVIDERS: ADMIT Student in an Organized Health Care Education/Training Program; ATTEND Student in an Organized Health Care Education/Training Program
DX: R11.2 Nausea with vomiting, unspecified (principal); N39.0 Urinary tract infection, site not specified; E87.6 Hypokalemia; E86.0 Dehydration; K70.30 Alcoholic cirrhosis of liver without ascites; F10.10 Alcohol abuse, uncomplicated; I10 Essential (primary) hypertension
CPT/HCPCS: 96374; G0378; J0696; J1650; J2060; J2405; J2550; J3475; J3480

== ENCOUNTER 2018-07-08 18:29 | Emergency (ER) | payer OTHER ==
--- NOTE | 2018-07-08 18:35 | EDPHY ---
HPI/HX/ROS/PE/MDM Narrative: CHIEF COMPLAINT: Fall, right hip pain. HPI: This is a 68-year old female with a history of alcoholism who was brought to the ED by EMS after a mechanical fall outside a store after slipping on ice. She landed primarily on her right hip and was unable to ambulate. She states the pain in her right hip is severe and feels similar to a previous hip fracture. She denies head or neck injury. She denies loss of consciousness. REVIEW OF SYSTEMS: A comprehensive 10 system review of systems is otherwise negative aside from elements mentioned in the history of present illness. PMH: alcoholic cirrhosis, esophageal varices, ascites, tonsillectomy Prior medical records reviewed including admission 04/04/18 for N/V. SOCIAL HISTORY: Lives in [place]. Single. Alcohol abuse. PHYSICAL EXAM: General:Patient is alert, in no acute distress. ENT:Eyes are normal to inspection. ENT inspection normal. Neck: Normal inspection. Full range of motion. Respiratory:No respiratory distress. Breath sounds normal bilaterally. Cardiovascular: Regular rate and rhythm. Strong peripheral pulses. Normal cap refill. Abdomen:The abdomen is nontender to palpation. There are no peritoneal signs. Back: Normal to inspection. No tenderness to palpation. Skin: Normal color. No rash. Warm and dry. Extremities: Right hip TTP with limited ROM. Distal pulses intact. Neuro: Oriented x3. Normal motor function. Normal sensory function. ED Course: This is a 68 y/o female with a history of alcoholism who presents with right hip pain secondary to a fall this evening. No shortening or rotation of the leg noted. She does have tenderness over her right hip and pain with movement. Exam otherwise atraumatic. Plan for IV, labs, hip x-ray, and pain management. 1mg IV Dilaudid ordered. Hip x-ray: no acute fracture Reevaluated patient. She is able to lift her leg off the bed. Will trial walking through the department with assistance to determine disposition. Patient was reluctant to bear weight on her right leg. Had an extensive discussion with her about options including admission, OT/PT, outpatient orthopedic follow up and further workup to exclude occult injury. She does not want to be admitted and would like to try walking with crutches. I expressed my concern about her fall risk, but she is adamant she would like to try crutches here so she can return home. Patient was able to crutch effectively though the department and would like to be discharged home. Recommended follow up with her orthopedist this week. Care instructions and return precautions discussed. Her daughter does not necessarily agree with plan, but is willing to transport mother home and help her out. - Data Points Imaging Results: Imaging Impressions Hip X-Ray 07/08/18 18:33 Impression: 1. No acute osseous findings. 2. Possible loosening of the femoral stem of the right hip arthroplasty. Imaging: Discussed imaging studies w/ cream beater Radiologist, I viewed and interpreted images myself Laboratory Results: Laboratory Results 07/08/18 18:35 07/08/18 18:35 07/08/18 07/08/18 07/08/18 18:35 18:35 18:35 WBC 7.37 10^3/uL 10^3/uL (3.80-9.50) RBC 5.21 10^6/uL 10^6/uL (4.18-5.33) Hgb 16.4 g/dL H g/dL (12.6-16.3) Hct 46.9 % % (38.0-47.0) MCV 90.0 fL fL (81.5-99.8) MCH 31.5 pg pg (27.9-34.1) MCHC 35.0 g/dL g/dL (32.4-36.7) RDW 13.4 % % (11.5-15.2) Plt Count 233 10^3/uL 10^3/uL (150-400) MPV 10.1 fL fL (8.7-11.7) Neut % (Auto) 41.8 % % (39.3-74.2) Lymph % (Auto) 47.6 % H % (15.0-45.0) [place] % (Auto) 7.9 % % (4.5-13.0) Eos % (Auto) 1.2 % % (0.6-7.6) Baso % (Auto) 1.2 % % (0.3-1.7) Nucleat RBC Rel Count 0.0 % % (0.0-0.2) Absolute Neuts (auto) 3.08 10^3/uL 10^3/uL (1.70-6.50) Absolute Lymphs (auto) 3.51 10^3/uL H 10^3/uL (1.00-3.00) Absolute Monos (auto) 0.58 10^3/uL 10^3/uL (0.30-0.80) Absolute Eos (auto) 0.09 10^3/uL 10^3/uL (0.03-0.40) Absolute Basos (auto) 0.09 10^3/uL 10^3/uL (0.02-0.10) Absolute Nucleated RBC 0.00 10^3/uL 10^3/uL (0-0.01) Immature Gran % 0.3 % % (0.0-1.1) Immature Gran # 0.02 10^3/uL 10^3/uL (0.00-0.10) PT 13.6 SEC SEC (12.0-15.0) INR 1.02 (0.83-1.16) APTT 28.6 SEC SEC (23.0-38.0) Sodium 136 mEq/L mEq/L (135-145) Potassium 3.4 mEq/L L mEq/L (3.5-5.2) Chloride 103 mEq/L mEq/L (97-110) Carbon Dioxide 19 mEq/l L mEq/l (22-31) Anion Gap 14 mEq/L mEq/L (6-14) BUN 8 mg/dL mg/dL (7-23) Creatinine 0.5 mg/dL L mg/dL (0.6-1.0) Estimated GFR > 60 Glucose 112 mg/dL H mg/dL (70-100) Calcium 10.1 mg/dL mg/dL (8.5-10.4) Medications Given: Discontinued Medications Hydromorphone HCl (Dilaudid) 1 mg IVP EDNOW ONE Stop: 07/08/18 18:41 Last Admin: 07/08/18 18:43 Dose: 1 mg General Initial Vital Signs: Initial Vital Signs Temperature (C) 36.6 C 07/08/18 18:32 Heart Rate 84 07/08/18 18:32 Respiratory Rate 16 07/08/18 18:32 Blood Pressure 145/80 H 07/08/18 18:32 O2 Sat (%) 100 07/08/18 18:32 O2 Delivery Mode Room Air Allergies/Adverse Reactions: No Known Allergies Allergy (Verified 07/16/16 14:26) Home Medications: Medication Instructions Recorded amLODIPine BESYLATE [Norvasc 5 mg 2.5 mg PO DAILY #30 tab 04/06/18 (*)] oxyCODONE/APAP 5/325 [Percocet 1 - 2 tab PO Q6H PRN #10 tab 07/08/18 5/325 (*)] oxyCODONE/APAP 5/325 [Percocet 5 - 10 mg PO Q4-6PRN PRN #25 tab 07/08/18 5/325] Departure - Departure Disposition: Home, Routine, Self-Care Clinical Impression: Right hip pain, Fall Condition: Good Instructions: Oxycodone/Acetaminophen (By mouth), Hip Pain (ED) Additional Instructions: Tylenol and ibuprofen as directed on the packaging as needed for pain over the next few days. Follow up with your orthopedist in the next week. Return for worsening of condition. Referrals: Naif Salinas MD [Primary Care Provider] - As per Instructions Ronnie Villar MD [Medical Doctor] - As per Instructions Prescriptions: oxyCODONE/APAP 5/325 [Percocet 5/325] 5 - 10 mg PO Q4-6PRN PRN #25 tab PRN Reason: For Pain oxyCODONE/APAP 5/325 [Percocet 5/325 (*)] 1 - 2 tab PO Q6H PRN #10 tab PRN Reason: Pain, Severe Report Scribed for: Arnaldo Solano Report Scribed by: Anastasiia Lofton Date of Report: 07/08/18 Time of Report: 18:33 Physician Review and Approval Statement: Portions of this note were transcribed by an ED scribe. I personally performed the history, physical exam, and medical decision making; and confirm the accuracy of the information in the transcribed note.
[2018-07-08] MEDS ORDERED: HYDROmorphONE/DILAUDID 2 MG/ML INJ IVP ONE (18:40)
[2018-07-08 18:51] LABS: PLATELET COUNT 233 10^3/uL (150-400)
[2018-07-08 19:00] LABS: INR 1.02 (0.83-1.16); PROTIME(PATIENT) 13.6 SEC (12.0-15.0)
[2018-07-08] MEDS ORDERED: OXYCODONE/APAP 5/325MG PREPACK#4 BTL TAKEHOME ONE ×2 (20:16→20:18)
[2018-07-08 20:26] VITALS: BP 134/80
== END 2018-07-08 20:26 | disposition home or self-care (01) ==
LOC: EDUNIT#
DX: M25.551 Pain in right hip (principal)
CPT/HCPCS: 73502; 96374; 99284; J1170

== ENCOUNTER → 2018-07-10 | Outpatient (CLI) | payer OTHER | LOC: FIMAGING 14:00 | PROVIDERS: ATTEND Physician Assistant | DX: S72.101A Unspecified trochanteric fracture of right femur, initial encounter for closed fracture (principal); Z47.1 Aftercare following joint replacement surgery; Z96.641 Presence of right artificial hip joint ==

== ENCOUNTER 2018-07-11 14:28 | Inpatient (IN) | payer OTHER ==
--- NOTE | 2018-07-11 08:53 | GHP ---
[f rep st] PREOP HISTORY AND PHYSICAL DATE OF ADMISSION: 07/11/2018 PREOPERATIVE DIAGNOSIS: Periprosthetic fracture, right hip. PLANNED PROCEDURE: Open reduction internal fixation, greater trochanter, right hip. HPI: The patient is a 68-year-old female who underwent a bipolar hip arthroplasty for [place] [address] Diallo Hassan, who had a slip and fall on Sunday. [facility] were negative. She had persistent pain, evaluated in the office which we sent her for a CT scan, which did show a minimally displaced greater trochanter fracture. Stem appeared to b e stable. Decision has been made to proceed with open reduction internal fixation to the greater tro chanter piece of the fracture. PRIOR MEDICAL HISTORY: Osteoporosis, migraines, recurrent urinary tract infections. MEDICATIONS: Amlodipine, diazepam, ibuprofen, Bactrim. ALLERGIES: No known drug allergies. 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 Occasional alcohol use. Does no t smoke. Lives alone. Does have kids in town. REVIEW OF SYSTEMS: No chest pain or shortness of breath. Otherwise, review of systems is unremarkab le. PHYSICAL EXAM: GENERAL APPEARANCE: Healthy 68-year-old female. VITAL SIGNS: 5 feet tall, weighs 1 30 pounds. Blood pressure is 124/68, heart rate is 76, respiratory rate is 14 on room air. Alert an d oriented x3. HEENT: Normocephalic, atraumatic. Extraocular muscles intact. NECK: Supple. No l ymphadenopathy. No JVD. CHEST: Clear to auscultation. CARDIOVASCULAR: Regular rate and rhythm. ABDOMEN: Soft, nontender, nondistended. EXTREMITIES: She does have pain with passive movement of t he hip. Tender over the greater trochanter. Leg lengths are equal. Compartments are soft. 2+ dors aliyah pedis and posterior tibial pulses. 5/5 ankle dorsiflexion, plantar flexion, strength. X-rays and CT scan do show on the CT scan, a periprosthetic fracture involving the greater trochanter without any stem loosening present. Difficult to visualize these fractures on the plain imaging fro m Sunday at the hospital. ASSESSMENT: Periprosthetic fracture, right hip. PLAN: Given the size of this greater trochanter piece, I recommend operative fixation. This was montez cribed in detail to the patient. It would be a claw plate with 2 cables around the bone. Will do th is through a posterior approach to the previous incision. She will be weightbearing as tolerated. N o active abduction for the first 6 weeks. She will use a walker initially. Anticipate 1 or 2 days i n the hospital postoperatively. Risks and benefits including nonunion of the fracture, need for natalie tional surgery, possible revision of the hip prosthesis to a total hip prosthesis, and possibility of blood clots postoperatively were all discussed. She understands these risks and wished to proceed. Preoperative paperwork was completed. We will plan on surgery at [facility]. /[id number]/MODL
[2018-07-11] MEDS ORDERED: LR 1,000 ML IV ONE (15:42)
[2018-07-11] MEDS ORDERED: LIDOCAINE 1% 2 ML INJ ID PRN (15:42)
--- NOTE | 2018-07-11 15:54 | POSTANESTH ---
Post Anesthetic Evaluation Cardiovascular Status: Normal, Stable Respiratory Status: Normal, Stable Level of Consciousness/Mental Status: Can Participate in Eval, Alert and Oriented Pain Control: Adequate, Prn Tx Ordered Nausea/Vomiting Control: Adequate, Prn Tx Ordered Complications Possibly Related to Anesthesia: None Noted Notes: LE still insensate and immobile secondary to SAB.
--- NOTE | 2018-07-11 15:55 | PDANEPAE ---
ANE History of Present Illness 68 yo female with h/o EtOH cirrhosis, now abstaining from EtOH, s/p fall with R hip fx. ANE Past Medical History - Cardiovascular History Hx Hypertension: No Hx Arrhythmias: No Hx Chest Pain: No Hx Palpitations: No - Pulmonary History Hx COPD: No Hx Recent Upper Respiratory Infection: No Hx Oxygen in Use at Home: No Hx Sleep Apnea: No - Endocrine History Hx Diabetes: No - Liver History Hepatic History Comment: h/o alcoholic cirrhosis, h/o ascites - Neurological & Psychiatric Hx Neurological / Psychiatric History Comment: anxiety - Chronic Pain History Chronic Pain: No ANE Review of Systems Review of Systems: - Systems Constitutional: Reports: no symptoms Cardiac: Reports: no symptoms Respiratory: Reports: no symptoms Muscolosketal: Reports: joint pain ANE Patient History - Allergies Allergies/Adverse Reactions: No Known Allergies Allergy (Verified 07/16/16 14:26) - NPO status NPO Since - Liquids (Date): 07/11/18 NPO Since - Liquids (Time): 12:00 (tea/water) NPO Since - Solids (Date): 07/10/18 NPO Since - Solids (Time): 17:00 - Anes Hx Anes Hx: no prior problems - Smoking Hx Smoking Status: Never smoked Marijuana use: Yes - Alcohol Use Alcohol Use: Occasionally (none in the past few months per pt) - Family Anes Hx Family Anes Hx: neg - N/A ANE Labs/Vital Signs - Vital Signs Vital Signs: reviewed preoperatively; see RN documention for details Height: 152.4 cm Weight: 56.699 kg ANE Physical Exam - Airway Neck exam: FROM Mallampati Score: Class 2 Mouth exam: dentures (upper) - Pulmonary Pulmonary: clear to auscultation - Cardiovascular Cardiovascular: tachycardia - ASA Status ASA Status: III ANE Anesthesia Plan Anesthesia Plan: spinal Total IV Anesthesia: Yes
[2018-07-11] MEDS ORDERED: CEFAZOLIN 2 GM/DEXTROSE/100 ML BAG IV ONE (16:15)
[2018-07-11] MEDS ORDERED: ceFAZolin 2 GM/DEXTROSE 100 ML IV ONE (16:15)
[2018-07-11] MEDS ORDERED: ceFAZolin 1 GM/5 ML SYR ONE (16:28)
[2018-07-11] MEDS ORDERED: BUPIVACAINE/EPI 0.5% 30 ML SDV ONE (16:28)
[2018-07-11] MEDS ORDERED: DIAZEPAM 5 MG/ML 1 ML SYR IVP ONE (16:39)
[2018-07-11] MEDS ORDERED: fentaNYL 100 MCG/2 ML INJ ONE (16:40)
[2018-07-11] MEDS ORDERED: PROPOFOL/EMULSION 500 MG/50 ML BOTTLE IV ONE (16:40)
[2018-07-11] MEDS ORDERED: LIDOCAINE 2% 5 ML SDV ONE (16:40)
[2018-07-11] MEDS ORDERED: DIAZEPAM 5 MG/ML 1 ML SYR ONE (16:47)
[2018-07-11] MEDS ORDERED: ALBUTEROL 3 ML DEYVIAL IH PRN (18:11)
[2018-07-11] MEDS ORDERED: DIAZEPAM 5 MG/ML 1 ML SYR IVP PRN (18:11)
[2018-07-11] MEDS ORDERED: NALOXONE HCL 0.4 MG/ML INJ IVP PRN (18:11)
[2018-07-11] MEDS ORDERED: ONDANSETRON 4 MG/2 ML VIAL IVP PRN (18:11)
[2018-07-11] MEDS ORDERED: oxyCODONE IR 5 MG TAB PO PRN (18:11)
[2018-07-11] MEDS ORDERED: HYDROmorphONE/DILAUDID 2 MG/ML INJ IVP PRN (18:11)
[2018-07-11] MEDS ORDERED: LR 500 ML IV PRN (18:11)
[2018-07-11] MEDS ORDERED: HYDROCODONE/APAP 5/325 TAB PO PRN (18:12)
--- NOTE | 2018-07-11 18:12 | POSTOPPROG ---
Post Op Note Date of Operation: 07/11/18 Surgeon: Filiberto Martel Account Receivable Associate: maria victoria ramey Anesthesiologist: Olivo Anesthesia: Spinal Pre-op Diagnosis: Gr troch periprosthetic fx Rt Post-op Diagnosis: same Procedure: ORIF GR Troch Fx Findings: minimally displaced Gr troch fx Inf/Abcess present in the surg proc area at time of surgery?: No EBL: 50-100 Complications: none
[2018-07-11] MEDS ORDERED: D5W 1/2 NS W/ 20 KCl/L 1,000 ML IV SCH (18:15)
[2018-07-11] MEDS: OXYCODONE/APAP 5/325 TAB PO PRN ×2 (20:49→21:56)
[2018-07-12] MEDS: OXYCODONE/APAP 5/325 TAB PO PRN ×4 (01:55→15:27)
--- NOTE | 2018-07-12 02:13 | GOP ---
[f rep st] OPERATIVE REPORT DATE OF OPERATION: 07/11/2018 SURGEON: Filiberto Martel MD PSYCHOLOGICAL STRESS EVALUATOR: Ronnie Aviles [facility]ULLEY [facility], [facility] ANESTHESIA: Spinal. ANESTHESIOLOGIST: Dr. Mcmahon. PREOPERATIVE DIAGNOSIS: Greater trochanteric periprosthetic right femur fracture. POSTOPERATIVE DIAGNOSIS: Greater trochanteric periprosthetic right femur fracture. PROCEDURE PERFORMED: Open reduction and internal fixation of periprosthetic femur fracture, right. FINDINGS: ESTIMATED BLOOD LOSS: 75 mL. INDICATIONS: Samantha is a 68-year-old female who had a fall earlier this week. Initial x-rays were ne gative. A CT scan did show a slightly displaced greater trochanteric fracture. Decision was made to proceed with an open reduction and internal fixation. The stem was intact from her bipolar arthropl asty from 2010. DESCRIPTION OF PROCEDURE: After appropriate informed consent was obtained, the patient was taken to the operating room and placed supine on the operating table. A time-out performed. The patient was identified, correct site was identified. She received [address] Mcmahon administered a spinal anesthetic. She was then positioned with her right hip up lateral decubitus position on the peg boar d. All bony prominences were well padded. We prepped and draped the right hip in the usual sterile fashion. Using the previous incision, soft tissues were carefully incised. Bleeding was controlled with electrocautery. I incised the IT band to identify the greater trochanter. The fracture was min imally displaced. I freed up the tissues around the lesser trochanter so we could pass the cables th ere and then using our cable passer, we passed a series of 2 wires and brought the limbs up, placed a claw plate in place and imbedded it into the tip of the greater trochanter. The wires were passed s uperiorly, inferiorly. We tightened the superior cables first with the cable tightening device, piero ped it, cut the wires and then repeated the procedure for the inferior wires securely fixing the frac ture back to place. The wound was irrigated. The IT band was closed with 0 Vicryl. Superficial lay ers closed with 2-0 Vicryl. Skin was closed with vickey. I instilled 30 mL of 0.5% Marcaine with e pinephrine around the incision. Sterile dressing was applied. The patient was awakened from anesthe chandni, taken to the recovery in satisfactory condition. There were no immediate intraoperative complic ations. Az Aviles's assistance was required throughout the entire case. IMPLANTS USED: [place] claw plate with 2 cables. COMPLICATIONS: None. DRAINS: None. /[id number]/MODL
--- NOTE | 2018-07-12 08:13 | PDMN ---
Medical Necessity Medical necessity: Pt meets inpt criteria per MD order and [facility] S-[id number], Hip Fracture, Open Repair, 3 days. 68 y/o fell and sustained periprosthetic fracture of R hip, admitted for surgery: ORIF GR Troch fx and post-op care. Est LOS>2MN for ongoing management of above.
[2018-07-12] MEDS: RIVAROXABAN 10 MG TAB PO SCH (09:19)
[2018-07-12] MEDS: CYCLOBENZAPRINE 10 MG TAB PO PRN ×2 (10:32→20:38)
--- NOTE | 2018-07-12 12:35 | ASMTCMCOM ---
CM Note CM Note Notes: Pt had surgery for hip fx after a fall Sunday. Pt resides alone but has adult children local who have assisted her. PT rec home health, OT rec pending. CM to follow. Date Signed: 07/12/2018 12:34 PM Electronically Signed By:ARNULFO Mckeon
--- NOTE | 2018-07-12 14:45 | ASMTCMCOM ---
CM Note CM Note Notes: Pt amenable to PT rec of C. Pt address/phone verified. Pt chooses [facility] and referral sent in [employer]. D/c plan of care: Home with [facility] PT Date Signed: 07/12/2018 02:44 PM Electronically Signed By:ARNULFO Mckeon
--- NOTE | 2018-07-12 19:07 | SOAPPROG ---
[facility] Progress Note Assessment/Plan: Assessment: Plan: 07/12/18 19:06 POD#1 ORIF periprosthetic fx RT PT/OT pain control Xarelto 10 mg daily x 10 days anticipate DC SAat Subjective: pain better controlled today with 2 percocets every 4-6 hours up with PT Objective: dressing c/d/i thigh soft 5/5 df/pf 2+ dp/tp pulses leg lengths equal Vital Signs Temp Pulse Resp BP Pulse Ox 36.8 C 78 16 102/58 L 98 07/12/18 12:00 07/12/18 16:00 07/12/18 16:00 07/12/18 12:00 07/12/18 16:00 Laboratory Results 07/12/18 04:43 07/11/18 07/12/18 07/13/18 05:59 05:59 05:59 Intake Total 2165 400 Output Total 650 750 Balance 1515 -350 ICD10 Worksheet Patient Problems: Problems Problem Status Onset Alcoholic liver failure Acute Dehydration Acute Hypokalemia Acute Nausea vomiting and diarrhea Acute Vomiting Acute Vomiting Acute
[2018-07-12] MEDS: oxyCODONE IR 5 MG TAB PO PRN (22:07)
[2018-07-13] MEDS: ACETAMINOPHEN 325 MG TAB PO SCH ×2 (01:23→08:46)
[2018-07-13] MEDS: oxyCODONE IR 5 MG TAB PO PRN ×3 (03:09→13:22)
[2018-07-13 07:59] VITALS: BP 122/75
[2018-07-13] MEDS: RIVAROXABAN 10 MG TAB PO SCH (08:46)
[2018-07-13] MEDS ORDERED: amLODIPine BESYLATE 5 MG TAB PO SCH (09:00)
[2018-07-13] MEDS ORDERED: CALCIUM CARBONATE 500 MG TAB PO SCH (09:00)
--- NOTE | 2018-07-13 10:05 | SOAPPROG ---
[place] Progress Note Assessment/Plan: Assessment: Plan: 07/12/18 19:06 POD#1 ORIF periprosthetic fx RT PT/OT pain control Xarelto 10 mg daily x 10 days anticipate DC SAa07/13/18 10:04 POD#2 ORIF gr troch WBAT No active abduction x 6 weeeks xarelto x 21 days keep incision covered for showers until Sunday DC home Today with HPT Subjective: feeling better Today slept well last night pain controlled Objective: dressing changed incision healing thigh soft 5/5 df/pf 2+ dp/tp pulse Vital Signs Temp Pulse Resp BP Pulse Ox 36.8 C 97 14 122/75 H 100 07/13/18 07:59 07/13/18 07:59 07/13/18 07:59 07/13/18 07:59 07/13/18 07:59 Laboratory Results 07/12/18 04:43 07/12/18 07/13/18 07/14/18 05:59 05:59 05:59 Intake Total 2165 640 Output Total 650 1000 200 Balance 1515 -360 -200 ICD10 Worksheet Patient Problems: Problems Problem Status Onset Alcoholic liver failure Acute Dehydration Acute Hypokalemia Acute Nausea vomiting and diarrhea Acute Vomiting Acute Vomiting Acute
--- NOTE | 2018-07-13 10:07 | PDIAF ---
- Diagnosis Diagnosis: periprosthetic fx RT hip Code Status: Full Code - Medication Management Product Builder Antibiotics: no Discharge Medications: electronically signed and located in the Home Medication List. PICC Care - Routine: N/A - Orders Services needed: Home Care, Physical Therapy Home Care Face to Face: I certify that this patient was under my care and that I had the required [id number] encounter meeting the encounter requirements on the discharge day. My findings support the fact that the patient is homebound as defined in Home Care Face to Face Continued: CMS Chapter 7 Medicare Benefits Manual 30.1.1 , The condition of the patient is such that there exists a normal inability to leave home and consequently, leaving home would require a considerable and taxing effort. Diet Recommendation: no restrictions on diet Diet Texture: Regular Texture Diet Wound Care Instructions: keep incision covered for showerrs umtil Sunday Activity/Weight Bearing Restrictions: WBAT. no active ABD RT hip x 6 weeks - Follow Up Care Current Providers and Referrals: Naif Salinas MD [Primary Care Provider] - Filiberto Martel MD [Medical Doctor] -
[2018-07-13] MEDS ORDERED: ONDANSETRON DISINTEGRATING 4 MG TAB PO PRN (10:12)
--- NOTE | 2018-07-13 11:25 | ASMTLACE ---
ABHI Length of stay for Answers: 2 days current admission Acuity / Level of Answers: Yes Care: Did the patient have an inpatient admission? # of Emergency department Answers: 1-2 visits in the last 6 months Social determinants Answers: History of substance abuse (ETOH, street drugs, prescription drugs, etc.) Mental health diagnosis (anxiety, depression, pers onality disorders, etc.) Score: 12 Date Signed: 07/13/2018 11:24 AM Electronically Signed By:ARNULFO Hughes
--- NOTE | 2018-07-16 13:19 | GDS ---
[f rep st] DISCHARGE SUMMARY REASON FOR ADMISSION: Periprosthetic fracture, right hip. PROCEDURE PERFORMED: ORIF, right greater trochanter hip. HPI: Samantha is a 68-year-old female who fell about 3 days prior to admission. Initial x-rays in the emergency room were negative for fracture; however, she presented to the office with continuing pain and difficulty bearing weight. A CT scan was obtained, which showed a periprosthetic fracture of the greater trochanter. Decision was made to proceed with open reduction and internal fixation of that fracture. HOSPITAL COURSE: Patient underwent ORIF of periprosthetic fracture on the right. She tolerated this well, was transferred to the orthopedic floor postoperatively and mobilized with physical and occupa tional therapy. Weightbearing as tolerated. No active abduction of that hip for 6 weeks. She was s tarted on a full-strength aspirin daily for DVT prophylaxis. Oxycodone was used to manage her pain, and she was discharged home on 07/13/2018. She will continue the oxycodone, the aspirin, Flexeril fo r muscle spasms and Zofran for nausea. Follow up in my office in 10-14 days with x-rays of the hip. CONDITION AT DISCHARGE: Stable. /[id number]/MODL
== END 2018-07-13 13:40 | disposition home health service (06) | DRG 481 ==
LOC: F3N 14:28 → OBSVTOIN 18:16 → F3N 19:47
PROVIDERS: ADMIT Orthopaedic Surgery; ATTEND Orthopaedic Surgery
PROC: 0QS604Z Reposition Right Upper Femur with Internal Fixation Device, Open Approach (ICD-10-PCS; principal; 2018-07-11 16:15)
DX: S72.111A Displaced fracture of greater trochanter of right femur, initial encounter for closed fracture (principal); M97.01XA Periprosthetic fracture around internal prosthetic right hip joint, initial encounter; M81.0 Age-related osteoporosis without current pathological fracture; W01.0XXA Fall on same level from slipping, tripping and stumbling without subsequent striking against object, initial encounter; G43.909 Migraine, unspecified, not intractable, without status migrainosus; Z87.440 Personal history of urinary (tract) infections
CPT/HCPCS: 97116-GP; 97161-GP; 97165-GO; 97535-GO; C1713; J0690; J2270; J2704; J3010; J3360

== ENCOUNTER → 2018-07-16 | Outpatient (CLI) | payer OTHER | LOC: BMCIMAGING 15:16 | PROVIDERS: ATTEND Orthopaedic Surgery | DX: M79.661 Pain in right lower leg (principal); R60.0 Localized edema ==